=== PATIENT | female | born 1980 | race Caucasian/White ===

== ENCOUNTER 2022-07-06 12:55 | Outpatient (CLI) | payer OTHER, SELFPAY | END 2022-07-06 12:56 | disposition home or self-care (01) | PROVIDERS: Visit Provider Physician Assistant | DX: R07.81 Pleurodynia (principal); R10.9 Unspecified abdominal pain | CPT/HCPCS: 80076; 83690 ==

== ENCOUNTER 2024-08-30 09:12 | Outpatient (CLI) | payer OTHER, SELFPAY ==
--- NOTE | 2024-08-30 11:14 | P.ANES_ITS ---
Anesthesia Charges Start Date/Time Anesthesia Start Date: 08/30/24 Anesthesia Start Time: 10:29 Stop Date/Time Anesthesia Stop Date: 08/30/24 Anesthesia Stop Time: 11:33 Coding CPT Codes CPT Codes: YOSEF LWR INTST NDNE NOS - 51301 ([id number]) P1 - NORMAL HEALTHY PATIENT, QK - PIPE CHANGER 2-4 CNCRNT ANES PROC, QX - REFUGE MANAGER SVC W/ MED DIRECTION
--- NOTE | 2024-08-30 11:14 | W.ANESCHARGE ---
Anesthesia Charges Start Date/Time Anesthesia Start Date: 08/30/24 Anesthesia Start Time: 10:29 Stop Date/Time Anesthesia Stop Date: 08/30/24 Anesthesia Stop Time: 11:33 Coding CPT Codes CPT Codes: YOSEF LWR INTST NDIA NOS - 41338 ([id number]) P1 - NORMAL HEALTHY PATIENT, QK - HEDDLE MACHINE OPERATOR 2-4 CNCRNT ANES PROC, QX - ENVIRONMENTAL MARKETER SVC W/ MED DIRECTION
--- NOTE | 2024-08-30 11:35 | P.ANES_ITS ---
Anesthesia Charges Start Date/Time Anesthesia Start Date: 08/30/24 Anesthesia Start Time: 10:29 Stop Date/Time Anesthesia Stop Date: 08/30/24 Anesthesia Stop Time: 11:33 Coding CPT Codes CPT Codes: YOSEF LWR INTST NDME NOS - 73265 ([id number]) P1 - NORMAL HEALTHY PATIENT, QK - SENIOR MANAGER MERGERS & ACQUISITIONS 2-4 CNCRNT ANES PROC, QX - PUZZLE ASSEMBLER SVC W/ MED DIRECTION
--- NOTE | 2024-08-30 11:35 | W.ANESCHARGE ---
Anesthesia Charges Start Date/Time Anesthesia Start Date: 08/30/24 Anesthesia Start Time: 10:29 Stop Date/Time Anesthesia Stop Date: 08/30/24 Anesthesia Stop Time: 11:33 Coding CPT Codes CPT Codes: YOSEF LWR INTST NDNE NOS - 62736 ([id number]) P1 - NORMAL HEALTHY PATIENT, QK - DOMESTIC CLEANER 2-4 CNCRNT ANES PROC, QX - CRANIOLOGIST SVC W/ MED DIRECTION
== END 2024-08-30 09:13 | disposition home or self-care (01) ==
LOC: OP CLINIC 09:12
PROVIDERS: PCP Nurse Practitioner Family; Visit Provider Surgery
DX: Z12.11 Encounter for screening for malignant neoplasm of colon (principal); Z83.718 Family history of other colon polyps; K64.8 Other hemorrhoids; D12.3 Benign neoplasm of transverse colon; D12.2 Benign neoplasm of ascending colon; D12.8 Benign neoplasm of rectum
CPT/HCPCS: 00811; 00812; 45381; 45385; 88305; J2704

== ENCOUNTER 2024-09-01 09:00 | Outpatient (CLI) | payer OTHER, SELFPAY | END 2024-09-01 09:01 | disposition home or self-care (01) | PROVIDERS: PCP Nurse Practitioner Family; Visit Provider Nurse Practitioner Family | DX: Z01.818 Encounter for other preprocedural examination (principal) | CPT/HCPCS: 80053; 85025 ==

== ENCOUNTER 2024-09-12 06:17 | Day surgery (SDC) | payer OTHER, SELFPAY ==
[2024-09-12] VITALS (12 sets, daily range): BP systolic 89–126; BP diastolic 44–87; PULSE 51–79; RESP 16; TEMP 36.1–37.1; O2SAT 94–99; BMI 25.8
[2024-09-12] MEDS: LACTATED RINGERS 1000 ML 1,000 ML 100 ML IV (06:20)
[2024-09-12] MEDS: SODIUM CHLORIDE 0.9 % (FLUSH) 10 ML SYRINGE IVF (06:38)
--- NOTE | 2024-09-12 07:09 | W.PM.H&PU ---
History & Physical Update History & Physical Update H&P Reviewed and patient assessed: No changes noted
--- NOTE | 2024-09-12 07:10 | P.GSOP_ITS ---
Operative Note Date of procedure: 09/12/24 Pre-op diagnosis: 1. Symptomatic external hemorrhoids and hemorrhoidal skin tags. Post-op diagnosis: Same Type of Procedure: 1. Three quadrant external hemorrhoidectomy. Indications: 44-year-old female was seen in clinic for evaluation of symptomatic hemorrhoids. Patient stated that after having her fourth child, she had a thrombosed hemorrhoid. This has resolved spontaneously. She complained of tissue around her anus that was prominent but started to bother her in the last year. Patient complain of itching, burning, occasional bleeding after bowel movements. Her symptoms are bothering her more than once a day. She noted that it was disrupting her sleep. She was also having trouble cleaning herself after bowel movements. Patient has a lot of fiber in her diet. She drinks at least 80 oz of water daily. Her bowel movements are usually easy to pass and she rarely has straining. Patient had a colonoscopy with several polyps removed and 1 year follow-up was recommended. On clinical exam patient had circumferential redundant external hemorrhoidal skin tags with the largest skin tags right laterally anterior midline and left laterally. Digital rectal exam and anoscopy did not reveal significantly enlarged internal hemorrhoids but patient felt like she noticed more protruding tissue from her anus on the right side. Given patient's clinical history and her physical exam, 3 quadrant hemorrhoidectomy was recommended. The procedure was discussed in detail. The risks associated procedure including infection, bleeding, temporary incontinence, rare serious infection, and the need for additional procedures were all discussed with the patient, she agreed to proceed. Procedure Description: After discussing the risks and benefits of the procedure, the patient signed informed consent.? The operative site was marked and the patient was brought to the operating room and Intubated by Anesthesia. Patient was then placed prone on the operating table with all pressure points padded.?? The operative site was then prepped and draped in the usual sterile fashion.? A time-out was then performed. External examination, digital rectal examination, and anoscopic examination were all done and revealed significantly redundant External hemorrhoidal tissue with associated hemorrhoidal skin tags circumferentially. The largest burden of hemorrhoidal tissue was anterior midline, right lateral and right posterior late rally. Attention was initially directed to the largest area of involvement and then went to the progressively smaller areas and all were handled in the same fashion. I first started with excising the anterior midline wide external hemorrhoid and hemorrhoidal skin tag. An elliptical incision was made with a needle tip electrocautery from the anoderm up into the anal canal just above the dentate line. Careful dissection of the hemorrhoid complex was done in the plane between the internal anal sphincter and the submucosal vascular plexus up to just above the dentate line in each quadrant described above. Care was taken to have enough hemorrhoidal skin tag to extend to the right to be able to close the incision. Having established the proper plane, the hemorrhoidal tissue was then excised with the Ligasure device and sent to Pathology for analysis. Care was taken to preserve mucosa for a tension-free closure. The internal sphincter fibers were visualized at the base of the wound and were intact. The wound was closed in a running locked manner starting at the apex (proximal aspect of elliptical excision) with 3-0 chromic suture, coming out to the anoderm and then running back up in a simple fashion and tying down at the apex. I also placed three 3-0 Vicryl sutures throughout the incision to reapproximate the hemorrhoidal skin. Hemostasis was excellent. I then similarly excised right lateral and right posterior lateral enlarged external hemorrhoid and hemorrhoidal skin tag. the skin closure at the anal verge was split to make a Y like incision to achieve tension-free closure. 3-0 Vicryl was used to place 2 interrupted sutures to reapproximate the skin. Pressure was held for hemostasis. There was residual left lateral hemorrhoidal skin tag but that was left in place to avoid increased swelling and scarring associated with this procedure. A mixture of Marcaine and Exparel was then injected for bilateral pudendal nerve block and around the anus. Sterile gauze and ABD were placed over the anus and mesh panties were placed over the patient's incisions. Patient was then placed supine on a cart and extubated by anesthesia. The patient was then woken and transported to the recovery area in stable condition. ? The patient tolerated the procedure well. Findings: Redundant external hemorrhoid and hemorrhoidal skin tags. No significantly enlarged internal hemorrhoidal tissue. Surgeon: Shauna Wall MD Estimated blood loss (mL): 5 Additional Specimen Information: 1. Hemorrhoids. Condition: stable Disposition: PACU
[2024-09-12] MEDS: BUPIVACAINE 0.25 %/EPI 1:200K 30 ml INJECTION (08:04)
[2024-09-12] MEDS: BUPIVACAINE LIPOSOME 133 MG/10 ML INJ INFILTRATI (08:04)
--- NOTE | 2024-09-12 08:35 | SUR.OPER ---
permanent bracelet on right wrist, wrapped with gauze during procedure, surgeon is aware. Skin intact after procedure
[2024-09-12] MEDS: fentaNYL 100 MCG/2 ML inj 50 MCG IVP (08:50)
--- NOTE | 2024-09-12 09:43 | P.ANES_ITS ---
Anesthesia Charges Start Date/Time Anesthesia Start Date: 09/12/24 Anesthesia Start Time: 07:30 Stop Date/Time Anesthesia Stop Date: 09/12/24 Anesthesia Stop Time: 08:44 Coding CPT Codes CPT Codes: ANESTH ANORECTAL SURGERY - 02802 ([id number]) P1 - NORMAL HEALTHY PATIENT, QZ - MORTGAGE CLOSER SVC W/O INDUSTRIAL GAS FITTER HELPER BY
--- NOTE | 2024-09-12 09:43 | W.ANESCHARGE ---
Anesthesia Charges Start Date/Time Anesthesia Start Date: 09/12/24 Anesthesia Start Time: 07:30 Stop Date/Time Anesthesia Stop Date: 09/12/24 Anesthesia Stop Time: 08:44 Coding CPT Codes CPT Codes: ANESTH ANORECTAL SURGERY - 57421 ([id number]) P1 - NORMAL HEALTHY PATIENT, QZ - MERCHANDISE PLANNER SVC W/O AUTOCAD BY
[2024-09-12] MEDS: METOCLOPRAMIDE HCL 5 MG/ML INJ 10 MG IVP (09:50)
== END 2024-09-12 10:26 | disposition home or self-care (01) ==
PROVIDERS: Visit Provider Surgery
PROC: (CPT 46250; principal; 2024-09-12 07:30)
DX: K64.8 Other hemorrhoids (principal); K64.4 Residual hemorrhoidal skin tags
CPT/HCPCS: 46250; 00902; 88304; J0330; J0666; J1100; J1630; J1885; J2405; J2704; J2710; J2765; J3010; J7120

== ENCOUNTER 2024-09-22 08:24 | Outpatient (CLI) | payer OTHER, SELFPAY ==
--- OUTSIDE RECORDS SUMMARY | 2024-08-18 06:45 | XMS_ITS ---
Author Organization [facility] Address [address] [place] [address] Care Team Providers Care Sales Support Rep Name Role Phone None, No PCP Primary Care Provider Arlene Waters Unavailable [phone] Aga Go Unavailable [phone] Encounters Encounter Location Date Provider Diagnosis [address] [place] [id number] 08/18/2024 Aga Go Plan Of Treatment No Information Progress Notes * Maximo BENZOB: 8 (44 yo F)Acc No.[id number]:08/18/2024 Patient: Lon ZARATE Provider: Betty Go DPT :1980 A ge:44 Y S ex:Female Date:08/18/2024 Address:[address] [place], [place] [address] [id number] Pcp:No PCP None Subjective: * Chief Complaints: * * Medical History: Objective: * Vitals: Therapeutic Interventions: Assessment: Plan: * Treatment: * Images: Billing Information: * Visit Code: * Procedure Codes: * Electronic signature of Heidi Go DPT on 09/23/2024 at 12:30 AM CDT Sign off status: Pending * Provider: Betty Go DPT Date: 08/18/2024 Generated for Printi ng/[place]/eTransmitting on: 09/23/2024 12:30 AM CDT
--- OUTSIDE RECORDS SUMMARY | 2024-08-25 04:30 | XMS_ITS ---
Author Organization [facility] Address [address] [place] [address] Care Team Providers Care Flooring Helper Name Role Phone None, No PCP Primary Care Provider Arlene Waters Unavailable [phone] Aga Go Unavailable [phone] Encounters Encounter Location Date Provider Diagnosis [address] [place] [phone] 08/25/2024 Aga Go Plan Of Treatment No Information Progress Notes * Maximo BENZOB: 8 (44 yo F)Acc No.[id number]:08/25/2024 Patient: Lon ZARATE Provider: Betty Go DPT :1980 A ge:44 Y S ex:Female Date:08/25/2024 Address:[address] [place], [place] [id number] Pcp:No PCP None Subjective: * Chief Complaints: * * Medical History: Objective: * Vitals: Therapeutic Interventions: Assessment: Plan: * Treatment: * Images: Billing Information: * Visit Code: * Procedure Codes: * Electronic signature of Heidi Go DPT on 09/23/2024 at 12:29 AM CDT Sign off status: Pending * Provider: Betty Go DPT Date: 08/25/2024 Generated for Damoni ng/[place]/eTransmitting on: 0 09/23/2024 12:29 AM CDT
--- OUTSIDE RECORDS SUMMARY | 2024-09-01 06:00 | XMS_ITS ---
Author Organization [facility] Address [address] [place] [address] Care Team Providers Care Program Eligibility Specialist Name Role Phone None, No PCP Primary Care Provider Arlene Waters Unavailable [phone] Aga Go Unavailable [phone] Encounters Encounter Location Date Provider Diagnosis [address] [place] [id number] 09/01/2024 Aga Go Plan Of Treatment No Information Progress Notes * Maximo BENZOB: 8 (44 yo F)Acc No.[id number]:09/01/2024 Patient: Lon ZARATE Provider: Betty Go DPT :1980 A ge:44 Y S ex:Female Date:09/01/2024 Address:[address] [place], [place] [address] [id number] Pcp:No PCP None Subjective: * Chief Complaints: * * Medical History: Objective: * Vitals: Therapeutic Interventions: Assessment: Plan: * Treatment: * Images: Billing Information: * Visit Code: * Procedure Codes: * Electronic signature of Heidi Go DPT on 09/23/2024 at 12:29 AM CDT Sign off status: Pending * Provider: Betty Go DPT Date: 09/01/2024 Generated for Damoni ng/[place]/eTransmitting on: 09/23/2024 12:29 AM CDT
--- NOTE | 2024-09-22 10:00 | CRLHL7_ITS ---
For Patients: As a result of the Century Cures Act, medical imaging exams and procedure reports are released immediately into your electronic medical record. You may view this report before your referring provider. If you have questions, please contact your health care provider. INDICATION: Urinary retention status post hemorrhoidectomy TECHNIQUE: Axial images were obtained from the diaphragm to the pubic symphysis. Reformats were obtained in the coronal and sagittal plane. IV Contrast: 86 cc Isovue 370 Oral Contrast: Yes COMPARISON: Abdomen and pelvis CT 12/01/2018 FINDINGS: Lower chest: Unremarkable. Liver: Normal in contour with right lobe cyst measuring 9 millimeters. Other hypodense lesions measuring 5 millimeters or less which are too small for characterization. Gallbladder and bile ducts: Status post cholecystectomy. Spleen: Unremarkable. Normal in size without mass. Pancreas: Unremarkable. No mass or inflammation. Adrenal glands: Unremarkable. No nodules. Kidneys: Symmetric renal enhancement without hydronephrosis. Left renal cyst measuring 16 millimeters. Vasculature: Unremarkable. GI tract: Stomach is unremarkable. Small bowel is unremarkable. Appendix unremarkable. Some fluid and liquid stool within the colon. Pelvis: Status post hysterectomy. Mild bladder distention. Collapsing right ovarian cyst measuring 2.0 centimeters. Bones: Unremarkable for age. IMPRESSION: 1. No evidence of abscess. 2. Fluid noted within the colon which can be seen in a diarrheal illness. 3. Collapsing right ovarian cyst measuring 2.0 centimeters. Please note that all CT scans at this facility use dose modulation, iterative reconstruction, and/or weight-based dosing when appropriate to reduce radiation dose to as low as reasonably achievable. Dictated by Reza Callejas MD @ 09/22/2024 10:48:12 AM (Electronically Signed)
--- OUTSIDE RECORDS SUMMARY | 2024-09-23 00:35 | XMS_ITS | Patient Health Record ---
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 Name Role Phone None, No PCP Primary Care Provider Unavailteddy Alvarez Arlene Unavailable [phone] Rick Rendon Unavailable [phone] [facility], Mammography Unavailable Unav ailable DonavanAga mcguire Unavailable [phone] Tish Sandoval Unavailable [phone] Tish England Unavailable [phone] Allergies Allergen (clinical drug ingredient) Drug/Non Drug Allergy documented on EMR Reaction Allergy Type Onset Date Status nitrofurantoin, macrocrystals / nitrofurantoin, monohydrate Macrobid hives, swelling, itching, redness Drug Allergy Active Results Component Value Reference Range Notes Urinalysis, Routine (IH) Reviewed date:01/26/2024 05:00:57 PM Interpretation: Performing Lab: Notes/Report: Customer Sales Specialist: 01 Mini UA 101 ([id number]), [address] ESTRADIOL Reviewed date:02/08/2024 12:43:51 PM Interpretation: Performing Lab:JENNIFER [facility] Lfdn[address] [facility], [place] HospitalNyuzNN[address] Joaquín Mccain Notes/Report: ESTRADIOL 153 Reference Range Follicular Phase: 19-144 Mid-Cycle: 64-357 Luteal Phase: 56-214 Postmenopausal: < or = 31 Reference range established on post-pubertal patient population. No pre-pubertal reference range established using this assay. For any patients for whom low Estradiol levels are anticipated (e.g. males, pre-pubertal children and hypogonadal/post-menopausal females), the [facility] Estradiol, Ultrasensitive, LCMSMS assay is recommended (order code 24210). Please note: patients being treated with the drug fulvestrant (Faslodex(R)) have demonstrated significant interference in immunoassay methods for estradiol measurement. The cross reactivity could lead to falsely elevated estradiol test results leading to an inappropriate clinical assessment of estrogen status. [facility] order code [id number]-Ojghoktve, Ultrasensitive LC/MS/MS demonstrates negligible cross reactivity with fulvestrant. FSH Reviewed date:02/08/2024 12:43:51 PM Interpretation: Performing Lab:JENNIFER [facility] [address], [place] PwlsYT[address] Joaquín Miguel A Mccain Notes/Report: FSH 3.3 Reference Range Follicular Phase 2.5-10.2 Mid-cycle Peak 3.1-17.7 Luteal Phase 1.5- 9.1 Postmenopausal 23.0-116.3 TESTOSTERONE, TOTAL, LC/MS/M S Reviewed date:02/08/2024 12:43:51 PM Interpretation: Performing Lab:Sebastián [facility] [address], [address]ab[facility]ikwxgXL[address] Luz Marina Richard MD,PhD Notes/Report: TESTOSTERONE, TOTAL, MS 25 2-45 ng/dL https://education.ROLI/faq/TotalTestosteroneLCMSMS (This link is being provided for informational/educational purposes only.) (Note) This test was developed and its analytical performance characteristics have been determined by [employer]. It has not been cleared or approved by the FDA. This assay has been validated pursuant to the CLIA regulations and is used for clinical purposes. [facility] [address] [address],[address] [facility] [address] Luz Marina Richard MD, PhD For additional information, please refer to Urinalysis, Routine (IH) Reviewed date:03/28/2024 01:26:21 PM Interpretation: Performing Lab: Notes/Report: Customer Sales Specialist: 01 Luzma ([id number])Arash - Lab Urinalysis, Routine (IH) Reviewed date:03/10/2024 10:09:08 AM Interpretation: Performing Lab: Notes/Report: Customer Sales Specialist: 01 Luzma ([id number])Arash - Lab CULTURE, URINE, ROUTINE Reviewed date:03/12/2024 02:44:47 PM Interpretation:Normal Performing Lab:CB, [facility] [address], [place] WpijPV[address] Joaquín Mccain Notes/Report: 0 CULTURE, URINE, ROUTINE SEE NOTE CULTURE, URINE, ROUTINE Micro Number: [id number] Test Status: Final Specimen Source: Urine, catheter Specimen Quality: Adequate Result: No Growth Reason For Referral No Information Social History Tobacco Use: Social History Observation Description Date Details (start date - stop date) Never Smoker NA - NA Tobacco Control (Standard) Question Answer Notes Tobacco use: Nonsmoker Problems Problem Type SNOMED Code ICD Code Onset Dates Problem Status W/U Status Risk Notes Problem 358325406 Menopausal and female climacteric states (N95.1) Active confirmed Problem SI - Stress incontinence (80117994) Stress incontinence (N39.3) Active confirmed Problem 85927579 Dyspareunia, female (N94.10) Active confirmed Problem 36996361 SHAMA (stress urinary incontinence, female) (N39.3) Active confirmed Problem 157641423 OAB (overactive bladder) (N32.81) Active confirmed Problem 01090813 Mixed incontinence urge and stress (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) Active confirmed Problem 784887151 POP-Q stage 2 cystocele (N81.10) Active confirmed Problem 491658209 POP-Q stage 2 rectocele (N81.6) Active confirmed Problem 61113396 Hemorrhoids, external (K64.4) Active confirmed Vital Signs Blood pressure diastolic 68 mm Hg 04/07/2024 Height 68 in 04/07/2024 Blood pressure systolic 102 mm Hg 04/07/2024 Weight 190 lbs 04/07/2024 BMI 28.89 kg/m2 04/07/2024 Encounters Encounter Location Date Provider Diagnosis [facility] [address] [place] [address] 04/07/2024 Tish England Mixed incontinence urge and stress N39.46 ; Dyspareunia, female N94.10 ; Hx of endometriosis Z87.42 and PFD (pelvic floor dysfunction) M62.[address] [place], [place] [id number] 06/30/2024 Aga Go High-tone pelvic floor dysfunction M62.89 ; OAB (overactive bladder) N32.81 ; Urinary urgency R39.15 ; Dyspareunia, female N94.10 and SHAMA (stress urinary incontinence, female) N39.3 [facility] [address] [place] [address] [place] [address] 03/10/2024 Rick Julieta Urinary frequency R35.0 ; Urinary urgency R39.15 ; Stress incontinence N39.3 ; Feeling of incomplete bladder emptying R39.14 ; POP-Q stage 2 cystocele N81.10 and POP-Q stage [address] [id number] 06/09/2024 Aga Go High-tone pelvic floor dysfunction M62.89 ; OAB (overactive bladder) N32.81 ; Urinary urgency R39.15 ; Dyspareunia, female N94.10 and SHAMA (stress urinary incontinence, female) N39.3 [facility] [address] [place] [address] 02/02/2024 Arlene Alvarez Menopausal and femal e climacteric states N95.[address] [id number] 01/26/2024 Tish England Urinary urgency R39.15 ; Urinary frequency R35.0 ; Bladder pain R39.89 ; High-tone pelvic floor dysfunction M62.89 ; POP-Q stage 2 cystocele N81.10 ; POP-Q stage 2 rectocele N81.6 and Hemorrhoids, external K64.[address] [id number] 04/07/2024 Aga Go High-tone pelvic floor dysfunction M62.89 ; OAB (overactive bladder) N32.81 ; Urinary urgency R39.15 ; Dyspareunia, female N94.10 and SHAMA (stress urinary incontinence, female) N39.3 [address] [address] [place] [address] 02/11/2024 Tish England Menopausal and femal e climacteric states N95.1 [facility] [address] [place] [address] 03/28/2024 Rick [place] Urinary frequency R35.0 ; Urinary urgency R39.15 ; Bladder pain R39.89 and Feeling of incomplete bladder emptying R39.14 [facility] [address] [place] [address] 03/10/2024 [facility] [address] [place] [address] 01/26/2024 [facility] [address] [facility] [address] [place], [place] [id number] 08/03/2024 [facility] [address] [place] [address] 03/08/2024 Rick [facility] [address] [place] [address] 03/07/2024 Rick [facility] [address] [place] [address] 04/04/2024 Aga Go Assessments Encounter Date Diagnosis (ICD Code) Assessment Notes Treatment Notes Treatment Clinical Notes Section Notes 04/07/2024 OAB (overactive bladder) (ICD-10 - N32.81) Response to intervention: The patient tolerated treatment with no adverse effects. Objectively she presents with high tone pelvic floor leading to her symptoms of OAB, urinary urgency, stress incontinence and dyspareunia. She tolerated the manual therapy well today with improvements noted in both pain and tension. Spent time on education of bowel management today and answering her questions to satisfaction. Discussed completing the musculoskeletal exam next session and progression of her HEP. Pt would benefit from skilled physical thearpy to make improvements in symptoms and met her goals. 04/07/2024 High-tone pelvic floor dysfunction (ICD-10 - M62.89) Response to intervention: The patient tolerated treatment with no adverse effects. Objectively she presents with high tone pelvic floor leading to her symptoms of OAB, urinary urgency, stress incontinence and dyspareunia. She tolerated the manual therapy well today with improvements noted in both pain and tension. Spent time on education of bowel management today and answering her questions to satisfaction. Discussed completing the musculoskeletal exam next session and progression of her HEP. Pt would benefit from skilled physical thearpy to make improvements in symptoms and met her goals. 04/07/2024 Dyspareunia, female (ICD-10 - N94.10) Discuss PFPT and vaginal valium suppository if needed - she will notify provider. Review other options including dry needling pelvic floor, Marita, pelvic floor botox, etc if needed with PT 04/07/2024 Mixed incontinence urge and stress (ICD-10 - N39.46) Today we discussed the diagnosis of mixed stress (SHAMA) and urge urinary incontinence/overac tive bladder (UUI/OAB) symptoms. We discussed her symptoms, [...] Will reach out fo provider if desired. 03/28/2024 Urinary frequency (ICD-10 - R35.0) 03/28/2024 Urinary urgency (ICD-10 - R39.15) 03/10/2024 Urinary frequency (ICD-10 - R35.0) 03/10/2024 Urinary urgency (ICD-10 - R39.15) 02/11/2024 Menopausal and female climacteric states (ICD-10 - N95.1) 02/02/2024 Menopausal and female climacteric states (ICD-10 - N95.1) 01/26/2024 Urinary frequency (ICD-10 - R35.0) 01/26/2024 Urinary urgency (ICD-10 - R39.15) Urodynamics not done. Plan is urodynamic testing and follow up with me 1 week after. Reason for testing, alternative options, risks, and benefits explained. The patient was given a voiding collection hat along with a voiding diary. I taught the patient how to fill out the voiding diary and to complete for 2-3 24 hour periods. Explained to the patient that she should bring the completed voiding diary to her follow up appointment. 06/30/2024 High-tone pelvic floor dysfunction (ICD-10 - M62.89) Response to intervention: The patient tolerated treatment with no adverse effects. Reassessment her pelvic floor today and her tension is greatly improved since she started therapy however still remains mild with very mild soreness. She responded well the MT today with improvements noted. Encouraged to continue with her HEP and answered her questions to satisfaction today. Pt would benefit from skilled physical thearpy to make improvements in symptoms and met her goals. 06/09/2024 High-tone pelvic floor dysfunction (ICD-10 - M62.89) Response to intervention: The patient tolerated treatment with no adverse effects. Completed the musculoskeletal exam and progressed her exercises as noted above. Upon reassessment of her pelvic floor today she continues to present with increased tension and pain however responded well to the manual therapy with improvements noted in both pain and tension. Pt would benefit from skilled physical thearpy to make improvements in symptoms and met her goals. 06/09/2024 OAB (overactive bladder) (ICD-10 - N32.81) Response to intervention: The patient tolerated treatment with no adverse effects. Completed the musculoskeletal exam and progressed her exercises as noted above. Upon reassessment of her pelvic floor today she continues to present with increased tension and pain however responded well to the manual therapy with improvements noted in both pain and tension. Pt would benefit from skilled physical thearpy to make improvements in symptoms and met her goals. 03/10/2024 Stress incontinence (ICD-10 - N39.3) 06/30/2024 OAB (overactive bladder) (ICD-10 - N32.81) Response to intervention: The patient tolerated treatment with no adverse effects. Reassessment her pelvic floor today and her tension is greatly improved since she started therapy however still remains mild with very mild soreness. She responded well the MT today with improvements noted. Encouraged to continue with her HEP and answered her questions to satisfaction today. Pt would benefit from skilled physical thearpy to make improvements in symptoms and met her goals. 01/26/2024 Bladder pain (ICD-10 - R39.89) Discuss possibility of PBS/IC causing her symptoms. Will complete bladder testing 03/28/2024 Bladder pain (ICD-10 - R39.89) 04/07/2024 Urinary urgency (ICD-10 - R39.15) Response to intervention: The patient tolerated treatment with no adverse effects. Objectively she presents with high tone pelvic floor leading to her symptoms of OAB, urinary urgency, stress incontinence and dyspareunia. She tolerated the manual therapy well today with improvements noted in both pain and tension. Spent time on education of bowel management today and answering her questions to satisfaction. Discussed completing the musculoskeletal exam next session and progression of her HEP. Pt would benefit from skilled physical thearpy to make improvements in symptoms and met her goals. 04/07/2024 Hx of endometriosis (ICD-10 - Z87.42) Review her U/S today and that no ovarian abnormalities seen. However, she has intermittent pain in adnexa and desires a MD consult to discuss if a laparoscopy is indicated given her symptoms and time since last done 10+ years ago. 04/07/2024 PFD (pelvic floor dysfunction) (ICD-10 - M62.89) See above plan for PFPT evaluation and treatment. 03/28/2024 Feeling of incomplete bladder emptying (ICD-10 - R39.14) 04/07/2024 Dyspareunia, female (ICD-10 - N94.10) Response to intervention: The patient tolerated treatment with no adverse effects. Objectively she presents with high tone pelvic floor leading to her symptoms of OAB, urinary urgency, stress incontinence and dyspareunia. She tolerated the manual therapy well today with improvements noted in both pain and tension. Spent time on education of bowel management today and answering her questions to satisfaction. Discussed completing the musculoskeletal exam next session and progression of her HEP. Pt would benefit from skilled physical thearpy to make improvements in symptoms and met her goals. 03/10/2024 Feeling of incomplete bladder emptying (ICD-10 - R39.14) 06/09/2024 Urinary urgency (ICD-10 - R39.15) Response to intervention: The patient tolerated treatment with no adverse effects. Completed the musculoskeletal exam and progressed her exercises as noted above. Upon reassessment of her pelvic floor today she continues to present with increased tension and pain however responded well to the manual therapy with improvements noted in both pain and tension. Pt would benefit from skilled physical thearpy to make improvements in symptoms and met her goals. 01/26/2024 High-tone pelvic floor dysfunction (ICD-10 - M62.89) Patient with Pelvic Floor Dysfunction. The question is rather it is primary or secondary as a result of visceral-somatic convergence. Possible secondary causes are pudendal neuropathy, intersitital cystitis, endometriosis or other pelvic factors. Plan urodynamics and potassium sensitivity test. Laparoscopy was considered for will be deferred for now. 06/30/2024 Urinary urgency (ICD-10 - R39.15) Response to intervention: The patient tolerated treatment with no adverse effects. Reassessment her pelvic floor today and her tension is greatly improved since she started therapy however still remains mild with very mild soreness. She responded well the MT today with improvements noted. Encouraged to continue with her HEP and answered her questions to satisfaction today. Pt would benefit from skilled physical thearpy to make improvements in symptoms and met her goals. 06/30/2024 Dyspareunia, female (ICD-10 - N94.10) Response to intervention: The patient tolerated treatment with no adverse effects. Reassessment her pelvic floor today and her tension is greatly improved since she started therapy however still remains mild with very mild soreness. She responded well the MT today with improvements noted. Encouraged to continue with her HEP and answered her questions to satisfaction today. Pt would benefit from skilled physical thearpy to make improvements in symptoms and met her goals. 06/09/2024 Dyspareunia, female (ICD-10 - N94.10) Response to intervention: The patient tolerated treatment with no adverse effects. Completed the musculoskeletal exam and progressed her exercises as noted above. Upon reassessment of her pelvic floor today she continues to present with increased tension and pain however responded well to the manual therapy with improvements noted in both pain and tension. Pt would benefit from skilled physical thearpy to make improvements in symptoms and met her goals. 03/10/2024 POP-Q stage 2 cystocele (ICD-10 - N81.10) 01/26/2024 POP-Q stage 2 cystocele (ICD-10 - N81.10) Today we reviewed the findings on exam of stage 2 cystocele or anterior vaginal wall prolapse. The prolapse is bothersome for her. We reviewed the findings on exam with diagrams. We specifically discussed potential impact of cystocele on bladder function including urgency, feeling of incomplete emptying. We also reviewed correction of the cystocele may result in the development of occult stress incontinence due to unmasking of any urethral weakness without the kink in the urethra from the prolapse. In regards to treatment, we discussed management for cystocele to include the following options: -no treatment and monitoring -physical therapy including urostym -pessary -surgery - anterior repair with possible paravaginal repair and SSLT. This comes with a risk of recurrent prolapse and the importance of addressing other areas of prolapse speciflcally apical prolapse at the time of surgery to reduce risk of recurrence. After discussion, she desires to proceed with bladder testing then treatment planning in follow-up 04/07/2024 SHAMA (stress urinary incontinence, female) (ICD-10 - N39.3) Response to intervention: The patient tolerated treatment with no adverse effects. Objectively she presents with high tone pelvic floor leading to her symptoms of OAB, urinary urgency, stress incontinence and dyspareunia. She tolerated the manual therapy well today with improvements noted in both pain and tension. Spent time on education of bowel management today and answering her questions to satisfaction. Discussed completing the musculoskeletal exam next session and progression of her HEP. Pt would benefit from skilled physical thearpy to make improvements in symptoms and met her goals. 01/26/2024 POP-Q stage 2 rectocele (ICD-10 - N81.6) Today we reviewed the diagnosis of stage 2 Rectocele. We reviewed the findings on exam with images. We discussed the impact of rectocele on both bulge symptoms and bowel symptoms. We reviewed the impact of the rectocele on stool trapping resulting in incomplete emptying. While there are various reasons for constipation, stool trapping especially with her symptoms of feeling of incomplete stool emptying are consistent with her exam findings. Treatment options include physical therapy, pessary and surgery. 03/10/2024 POP-Q stage 2 rectocele (ICD-10 - N81.6) 06/09/2024 SHAMA (stress urinary incontinence, female) (ICD-10 - N39.3) Response to intervention: The patient tolerated treatment with no adverse effects. Completed the musculoskeletal exam and progressed her exercises as noted above. Upon reassessment of her pelvic floor today she continues to present with increased tension and pain however responded well to the manual therapy with improvements noted in both pain and tension. Pt would benefit from skilled physical thearpy to make improvements in symptoms and met her goals. 06/30/2024 SHAMA (stress urinary incontinence, female) (ICD-10 - N39.3) Response to intervention: The patient tolerated treatment with no adverse effects. Reassessment her pelvic floor today and her tension is greatly improved since she started therapy however still remains mild with very mild soreness. She responded well the MT today with improvements noted. Encouraged to continue with her HEP and answered her questions to satisfaction today. Pt would benefit from skilled physical thearpy to make improvements in symptoms and met her goals. 01/26/2024 Hemorrhoids, external (ICD-10 - K64.4) Return to care with colorectal specialist, prevoiusly discussed hemorrhoidectomy 03/24/2024 Other Follow up as scheduled in 2 weeks. Potassium Sensitivity Testing completed by Vinita Alvarez LPN under the direction of Dr Rick Rendon. 01/26/2024 Other Time spent on patient care including - review of previous records - preparation for visit - ordering medications, labs or imaging - documenting visit - discussion of care with another health care professional if indicated - direct face to face time with patient including obtaining relevant history, physical exam and discussion of plan of care Total time was 44 minutes spent including some or all of above listed required for care of patient talking about diagnosis, treatment and plan of care outside of usual preventive care with the patient as listed in the treatment portion of the note 02/02/2024 Other -HRT Labs drawn today. Reasoning for labs discussed in detail -HRT options reviewed in detail, including estradiol and testosterone, risks/benefits, common side effects, costs and dosing schedule. -Counseled on the differences between FDA approved bio-identical hormone replacement, and non-FDA approved compounded bioidentical hormone replacement. -Patient education and informed consent in HRT packet reviewed. -Counseled on associated increased risks for [place], CVA, VTE, and breast cancer with some forms of hormone replacement therapy. HRT could decrease associated lifetime risks, specifically with the use of bioidentical hormones including estradiol, progesterone, and/or testosterone preparations. Bioidentical hormonal therapies have not been shown to significantly increase risks for [place], CVA, VTE, and/or breast cancer, but do not guarantee prevention of developing these risks if used. group home associated risks of non-FDA approved bioidentical compounded hormones are not known. -Discussed potential side effects of pellet therapy including fluid retention, swelling, breast tenderness, nipple sensitivity, mood swings and irritability, acne, hair loss and/or hair growth. -Breast cancer screening policy reviewed and printed handout given. Mammogram needed prior to pellet insert. -Annual mammogram, clinical breast exam and GLASSBLOWER exams recommended -Plan for follow-up in next available visit to review lab results and proceed with treatment options if desired and indicated. Schedule pellet insert 1 week after mammogram is scheduled. 03/10/2024 Other We discussed the urodynamics procedure and explained that she should drink plenty of water today. Explained that she should follow up with any signs of worsening pain, fevers and/or malodorous urine. Increased urinary frequency and urgency could also be a sign of a urinary tract infection and she should notify us should this occur. Follow up in 4 weeks to discuss the results and to formulate a plan. Urodynamics completed by Vinita Alvarez LPN under the direction of Dr Rick Rendon. 03/28/2024 Other Follow up as scheduled in 1 week. Potassium Sensitivity Testing completed by Vinita Alvarez LPN under the direction of Dr Rick Rendon. 04/07/2024 Other Treatment Plan: Frequency: weekly Duration: 8-12 weeks Planned Interventions: therapeutic exercise, therapeutic activities, self care/home management, manual therapy, neuromuscular reeducation, urostym/e-stim Plan for next visit: Complete MS exam and progress home exercise as indicated with focus on PF and pelvic girdle stabilization exercises, manual therapy as indicated. She would do well with urostym therapy Response to intervention: The patient tolerated treatment with no adverse effects. Objectively she presents with high tone pelvic floor leading to her symptoms of OAB, urinary urgency, stress incontinence and dyspareunia. She tolerated the manual therapy well today with improvements noted in both pain and tension. Spent time on education of bowel management today and answering her questions to satisfaction. Discussed completing the musculoskeletal exam next session and progression of her HEP. Pt would benefit from skilled physical thearpy to make improvements in symptoms and met her goals. 06/09/2024 Other Treatment Plan: Frequency: weekly Duration: 8-12 weeks Planned Interventions: therapeutic exercise, therapeutic activities, self care/home management, manual therapy, neuromuscular reeducation, urostym/e-stim Plan for next visit: Progress home exercise as indicated with focus on PF and pelvic girdle stabilization exercises, manual therapy as indicated. She would do well with urostym therapy Response to intervention: The patient tolerated treatment with no adverse effects. Completed the musculoskeletal exam and progressed her exercises as noted above. Upon reassessment of her pelvic floor today she continues to present with increased tension and pain however responded well to the manual therapy with improvements noted in both pain and tension. Pt would benefit from skilled physical thearpy to make improvements in symptoms and met her goals. 06/30/2024 Other Treatment Plan: Frequency: weekly Duration: 8-12 weeks Planned Interventions: therapeutic exercise, therapeutic activities, self care/home management, manual therapy, neuromuscular reeducation, urostym/e-stim Plan for next visit: Progress home exercise as indicated with focus on PF and pelvic girdle stabilization exercises, manual therapy as indicated. She would do well with urostym therapy Response to intervention: The patient tolerated treatment with no adverse effects. Reassessment her pelvic floor today and her tension is greatly improved since she started therapy however still remains mild with very mild soreness. She responded well the MT today with improvements noted. Encouraged to continue with her HEP and answered her questions to satisfaction today. Pt would benefit from skilled physical thearpy to make improvements in symptoms and met her goals. Plan Of Treatment No Information Insurance Providers Payer Name Payer Address Payer Phone Subscriber Number Group Number Insured Name Patient Relationship to Insured Coverage Start Date Coverage End Date [facility] [address] MARTHA Villalobos [id number] Self - patient is the insured Medical (General) History Medical History History ICD Code chicken pox lymes disease gall baldder disease liver disease/hepatitis Hypothyroid kidney Infection Bladder infection endometriosis ovarian cyst arthiritis hemorroids Surgical History Surgery Date(Month/Year) Gall Bladder Surgery Hysterectomy fusions ovarian cysts Hospitalization History Reason Date(Month/Year) Gall Bladder Post Surgeries
--- OUTSIDE RECORDS SUMMARY | 2024-09-23 00:35 | XMS_ITS | Clinical Summary ---
Author Organization [employer] Address [address] [place] [address] Care Team Providers Care Hardboard Supervisor Name Role Phone Ronnie Vizcarra MD Primary Care Provider [phone] Source Comments You are receiving this document as you are listed as the primary care provider,follow-up provider, or the patient has been referred to you for consultation.This is in compliance with the Medicare andMedicaid EHR Incentive Program,which states Providers who transition their patient to another setting of careor provider of care or refers their patient to another provider of care shouldprovide summary care record for each transition of care or referral. [employer] Allergies Active Allergy Reactions Criticality Noted Date Comments Nitrofurantoin Hives High 01/07/2016 Swelling and itching Medications * This document contains information received from the source organization and may not represent a complete record from that organization. amphetamine-dext roamphetamine (ADDERALLXR) 30 MG 24 hour release capsule Take by mouth daily. 0 12/14/2015 Active amphetamine-dext roamphetamine (ADDERALL) 10 MG tablet Take 10 mg by mouth daily at noon. 0 12/14/2015 Active levothyroxine (SYNTHROID) 100 MCG tablet Take 100 mcg by mouth daily. 3 11/02/2015 Active sertraline (ZOLOFT) 50 MG tablet TAKE 1 TABLET BY MOUTH DAILY. TAKE W/ 100MG TAB FOR TOTAL DAILY DOSE OF 150MG. 3 11/02/2015 Active sertraline (ZOLOFT) 100 MG tablet 01/05/2016 Active Active Problems Problem Noted Date Diagnosed Date Primary osteoarthritis of both hands 01/07/2016 Pain in both hands 01/07/2016 Fibromyalgia 01/07/2016 Chronic fatigue 01/07/2016 Depression 01/07/2016 ADD (attention deficit disorder) 01/07/2016 Immunizations Immunization Administration Dates Next Due HepB Ped/Adol (0-18 yrs) 07/04/1997,02/03/1997,0 01/03/1997 Td 01/03/1997 Varicella 05/22/1999(Deferred: Immune by Florence garcia) Social History Tobacco Use Types Packs/Day Years Used Date Smoking Tobacco: Every Day Cigarettes Smokeless Tobacco: Never Comments Unknown Sex and Gender Information Value Date Recorded Sex Assigned at Not on file Legal Sex Female 6:55 AM CDT Gender Identity Not on file Sexual Orientation Not on file Last Filed Vital Signs Vital Sign Reading Time Taken Comments Blood Pressure 118/65 01/07/2016 10:32 AM CDT Pulse 78 01/07/2016 10:32 AM CDT Temperature - - Respiratory Rate - - Oxygen Saturation - - Inhaled Oxygen Concentration - - Weight 72.1 kg (159 lb) 01/07/2016 10:32 AM CDT Height - - Body Mass Index - - Plan of Treatment Health Maintenance Due Date Last Done Comments Colon Cancer Screening Plan Due 1978 Hep C Screening (Preventive Services) 1978 Mammogram 1978 HIV Screening (Preventive Services) 1994 DTaP/Tdap/Td Vaccine (2 - Tdap) 01/04/1997 01/03/1997 Cervical Cancer Screening Due 05/21/1999, 05/20/1999 Adult Preventive Visit 05/20/2000 05/20/1999 Cholesterol 2023 COVID-19 Vaccine ( - 2023-2 5 season) 2023 Influenza Vaccine (Season Ended) 2024 Zoster/Shingles Vaccine (1 o f 2) 01/25/2028 HepB Vaccine Completed 07/04/1997, 02/03/1997, 01/03/1997 HepA Vaccine Aged Out No longer eligi ble based on patient's age to complete this topic Hib Vaccine Aged Out No longer eligi ble based on patient's age to complete this topic IPV (Polio) Vaccine Aged Out No longe r eligible based on patient's age to complete this topic MCV4 Vaccine Aged Out No longer eligi ble based on patient's age to complete this topic Meningococcal B Vaccine Aged Out No l onger eligible based on patient's age to complete this topic Pneumococcal Vaccine Aged Out No long er eligible based on patient's age to complete this topic Procedures Procedure Name Priority Date/Time Associated Diagnosis Comments PAP TEST, ROUTINE Routine 05/20/1999 12: 10 PM PHOTONICS TECHNICIAN from Last 3 Months or Most Recently Relevant to Health Maintenance Results * PAP SMEAR, ROUTINE (05/20/1999 12:10 PM PHOTONICS TECHNICIAN) Pap Smear, Routine See Separate Report Performed at [facility] 05/20/1999 12:1 0 PM PHOTONICS TECHNICIAN 05/20/1999 12:11 PM PHOTONICS TECHNICIAN us Chio Cantu NEWSPAPER PHOTOJOURNALIST, FIELD CROP TECHNICAL OFFICER LAB_1 Fin al Result Performing Organization Address City/State/[facility] Co de Phone Number [facility] [address] [phone] from Last 3 Months or Most Recently Relevant to Health Maintenance Insurance SELF INSURED Care Teams Hardboard Supervisor Relationship Specialty Start Date End Date Ronnie Vizcarra MD [address] [place] [address] PCP - General 03/02/13
--- OUTSIDE RECORDS SUMMARY | 2024-09-23 00:35 | XMS_ITS | Clinical Summary ---
Author Organization [employer] [facility] Address [address] [place] [address] Care Team Providers Care Ballet Dancer Name Role Phone Unknown, Doctor Primary Care Provider Sonny Justin MD Unavailable Unavailab le Allergies Active Allergy Reactions Criticality Noted Date Comments Nitrofurantoin Hives 01/19/2006 Medications IBUPROFEN 200 MG TAB take 3 tablet s(200 mg) by oral route every 6 hours as needed with food 0 Active CIPRO 250 MG TAB take 1 tablet (250 mg) by oral route every 12 hours 6 0 7 Active AMBIEN 5 MG TAB take 1 tablet (5 mg) by oral route once daily at bedtime as needed 10 0 7 Active APRI 0.15 MG-30 MCG TABIndications:Othe r general counseling and advice for contraceptive management take 1 tablet by oral route once daily 28 0 8 Active LEVOTHYROXINE 100 MCG TABIndications:Unsp ecified hypothyroidism take 1 tablet (100mcg) by oral route once daily 14 0 8 Active Active Problems Problem Noted Date Diagnosed Date Pure hypercholesterolemia 10/19/2006 Irritable bowel syndrome 01/19/2006 Unspecified hypothyroidism 01/19/2006 Encounters Date Type Department Care Team Description 09/12/2024 Lab Requisition [facility] [phone] Shauna Wall MD 08/31/2024 Lab Requisition [facility] [phone] Shauna Wall MD from Last 3 Months Immunizations Immunization Administration Dates Next Due Hepatitis B (Adult) 12/05/1997,07/05/1997,1997 MMR 11/16/1995 Td (Age >=7 Years) 07/12/1996 Tdap 10/19/2006 Tuberculin (PPD) 05/17/2001 Family History Medical History Relation Name Comments Good Health Father Other Maternal Grandfather bladder cancer Cancer-colon Maternal Grandmother Heart Disease Maternal Uncle Good Health Mother Diabetes Paternal Grandfather Hypertension Paternal Grandmother Relation Name Status Comments Father Alive Maternal Grandfather Maternal Grandmother Maternal Uncle Mother Alive Paternal Grandfather Paternal Grandmother Social History Tobacco Use Types Packs/Day Years Used Date Smoking Tobacco: Former Comments:quit in 2005 Alcohol Use Standard Drinks/Week Comments Yes 0 (1 standard drink = 0.6 oz pur e alcohol) rare Interpersonal Safety Answer Date Record ed Are you being hit, kicked, p ushed or yelled at (see row info)? 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 Not on file Not on file Obstetrics History Last Filed Vital Signs Vital Sign Reading Time Taken Comments Blood Pressure 109/67 06/07/2024 7:30 PM JACKAROO Pulse 51 06/07/2024 7:30 PM JACKAROO Temperature 36.8 C (98.3 F) 06/07/2024 5:20 PM JACKAROO Respiratory Rate 15 06/07/2024 7:30 PM JACKAROO Oxygen Saturation 99% 06/07/2024 7:30 PM JACKAROO Inhaled Oxygen Concentration - - Weight 83.9 kg (185 lb) 06/07/2024 5:20 PM JACKAROO Height 175.3 cm (5' 9) 06/07/2024 5:20 PM JACKAROO Body Mass Index 27.32 06/07/2024 5:20 PM JACKAROO Plan of Treatment Health Maintenance Due Date Last Done Comments Depression screening for age 12+ 1990 HIV for age 15-65 1993 BMI (ht and wt on same day) for age 18+ 01/25/1996 Hepatitis C screening for age 18-79 01/25/1996 Tetanus booster 10/19/2016 10/19/2006, 07/12/1996 Pap test for age 21-65 02/19/2019 6, 02/20/2016, 03/24/2008, Additional history exists Colonoscopy through age 75 2023 Lipids for age 45-75 2023 10/19/2006, 07/12/2003, 07/12/2003, Additional history exists Mammogram for age 45-75 2023 COVID-19 vaccine series ( season) 2023 Influenza Vaccine (Season Ended) 2024 Hepatitis B series for 19+ Completed 12/05, 07/05/1997, 06/04/1997 Tdap Completed 10/19/2006 Pneumococcal series for age 6-49 Aged Out No longer eligible based on patient's age to complete this topic Procedures Procedure Name Priority Date/Time Associated Diagnosis Comments LAB TRACKING EVENT Routine 09/12/2024 12 :00 PM CDT PATH TISSUE EXAM Routine 09/12/2024 8:03 AM CDT LAB TRACKING EVENT Routine 08/30/2024 10 :41 AM CDT PATH TISSUE EXAM Routine 08/30/2024 10:4 1 AM CDT DIRECTOR ORGANIZATIONAL THIN PREP PAP SCREEN IMAGED Routine 02/20/2016 10:00 AM JACKAROO LIPID PANEL Routine 10/19/2006 10:32 AM CDT Hypercholesterolemi a from Last 3 Months or Most Recently Relevant to Health Maintenance Results * LAB TRACKING EVENT (09/12/2024 12:00 PM CDT) Only the most recent of2 resultswithin the time period is included. Other (Other) Client Collect / Unknown 09/12/2024 12:00 PM CDT 09/12/2024 3:21 PM CDT us Shauna Wall MD LAB BILL ONLY Final Resu lt [facility] [address] [place] [address], [place] * PATH TISSUE EXAM (09/12/2024 8:03 AM CDT) Only the most recent of2 resultswithin the time period is included. Case Report Pathology Report Case: [id number] Authorizing Provider: Shauna Wall MD Collected: 09/12/2024 0803 Ordering Location: [facility] Received: 09/12/2024 1651 Pathologist: Abner Herring MD Specimen: Hemorrhoids 09/14/2024 2:50 PM CDT [facility] Final Diagnosis A) ANUS, HEMORRHOIDS, HEMORRHOIDECTOMY: 1. Benign anal hemorrhoidal tissue 2. Negative for viral change, dysplasia and malignancy 09/14/2024 2:50 PM CDT [facility] at 1450 CDT Clinical Information Hemorrhoids. 09/14/2024 2:50 PM CDT [facility] Gross Description A) Received in formalin, labeled with the patient's name and hemorrhoids, is a 4.0 x 3.0 x 1.2 cm aggregate of two portions of anal skin and or mucosa. The overlying mucosa is unremarkable. The cut surfaces are adam-pink with dilated and congested blood vessels. No masses or lesions are identified. Welder Plasma Arc sections of each fragment are submitted in one cassette. AL 09/13/2024 09/14/2024 2:50 PM CDT [facility] Microscopic Description The final diagnosis is based on microscopic examination of appropriate sections of all specimens. 09/14/2024 2:50 PM CDT [facility] Additional Information Interpreted at [facility] - [address], [place] [address] 09/14/2024 2:50 PM CDT [facility] Other HEMORRHOID TISSUE SPECIMEN / Unknown 09/12/2024 8:03 AM CDT 09/12/2024 4:51 PM CDT us Shauna Wall MD PATHOLOGY/CYTOLOGY Final R esult [facility] [address] [place] [address], * DIRECTOR ORGANIZATIONAL THIN PREP PAP SCREEN IMAGED (02/20/2016 10:00 AM JACKAROO) Case Report Gynecologic Cytology Report Case: [id number] Authorizing Provider: Lali Foote MD Collected: 02/20/2016 1000 First Screen: Debbie Reza Received: 02/22/2016 0838 Rescreen: Freddy Mosher Specimen: DIRECTOR ORGANIZATIONAL ThinPrep Vial Screening, Cervical/Vaginal 03/03/2016 1:37 PM JACKAROO [facility] INTERPRETATION/ RESULT NEGATIVE FOR INTRAEPITHELIAL LESION OR MALIGNANCY (NIL) (none) 03/03/2016 1:37 PM JACKAROO [facility] at 1337 JACKAROO SPECIMEN ADEQUACY Satisfactory for evaluation Endocervical component present 03/03/2016 1:37 PM JACKAROO [facility] HPV REQUEST HPV and PAP 03/03/2016 1:37 PM JACKAROO [facility] Date of LMP 02/09/2016 03/03/2016 1:37 PM JACKAROO [facility] Last Pap Date 11/29/2012 03/03/2016 1:37 PM JACKAROO [facility] Last Pap Result 6 1:37 PM [facility] Comment:WNL, -HPV Automated Review Successful 03/03/2016 1:37 PM JACKAROO [facility] Comment:Specimen processed s uccessfully by automated coin machine collector supervisor device, [employer]inPrep Imaging System, [employer] ANCILLARY TESTING DIRECTOR ORGANIZATIONAL HPV Ordered, Please see separate report 03/03/2016 1:37 PM JACKAROO [facility] Note The pap test is a screening technique, not a diagnostic procedure. It is used primarily to screen for squamous cancers and precursor lesions. Published studies have shown that it is subject to both false negative and false positive results. The pap test should not be used as the sole means to diagnose or exclude pre-malignant and malignant lesions. 03/03/2016 1:37 PM JACKAROO [facility] Other (Cervical/Vagina l) 02/20/2016 10:00 AM JACKAROO 02/22/2016 8:38 AM JACKAROO us Lail Foote MD PATHOLOGY/CYTOLOGY Final R esult [facility] [address] [place] [address], * (ABNORMAL) LIPID PANEL (10/19/2006 10:32 AM CDT) CHOLESTEROL,TOTAL 225(H) 110 - 199 mg/dL [facility] TRIGLYCERIDES 128 40 - 149 mg/dL [facility] HDL CHOLESTEROL 66 >40 mg/dL [facility] CHOL/HDL RATIO 3.41 <4.51 [facility] LDL CHOLESTEROL 133(H) <131 mg/dL [facility] PATIENT STATUS Fasting [facility] Blood specimen (specimen) BLOOD SPECIMEN / Unknown 10/19/2006 10:32 AM CDT 10/19/2006 10:26 AM CDT us Shireen KEANE CHEMISTRY Final R esult [facility] [place]NAL ZIP [address] [place] [id number] from Last 3 Months or Most Recently Relevant to Health Maintenance Insurance [id number] [place] [id number] [place] [id number] Care Teams Ballet Dancer Relationship Specialty Start Date End Date Unknown, Doctor . PCP - General 04/19/08 Sonny Stoner MD 12/10/10
== END 2024-09-22 08:25 | disposition home or self-care (01) ==
LOC: CT 08:25
PROVIDERS: PCP Nurse Practitioner Family; Visit Provider Surgery
DX: R33.9 Retention of urine, unspecified (principal); Z87.19 Personal history of other diseases of the digestive system; Z98.890 Other specified postprocedural states
CPT/HCPCS: 74177; Q9967

== ENCOUNTER 2025-01-30 10:36 | Emergency (ER) | payer OTHER, SELFPAY ==
--- OUTSIDE RECORDS SUMMARY | 2024-06-23 06:00 | XMS_ITS ---
Author Organization [facility] Address [address] [place] [address] Care Team Providers Care Utilities Service Investigator Name Role Phone None, No PCP Primary Care Provider Arlene Waters Unavailable [phone] Aga Go Unavailable [phone] Encounters Encounter Location Date Provider Diagnosis [address] [place] [phone] 06/23/2024 Aga Go Plan Of Treatment No Information Progress Notes * Marcos FISHERPiaOB: 8 (45 yo F)Acc No.[id number]:06/23/2024 Patient: Lon ZARATE Provider: Betty Go DPT :1980 A ge:44 Y S ex:Female Date:06/23/2024 Address:[address] [place], [place] [address], [id number] Pcp:No PCP None Subjective: * Chief Complaints: * * Medical History: Objective: * Vitals: Therapeutic Interventions: Assessment: Plan: * Treatment: * Images: Billing Information: * Visit Code: * Procedure Codes: * Electronic signature of Heidi Go DPT on 01/30/2025 at 10:39 AM CDT Sign off status: Pending * Provider: Betty Go DPT Date: 0 06/23/2024 Generated for Printi ng/Faxing/eTransmitting on: 1 10:39 AM CDT
--- OUTSIDE RECORDS SUMMARY | 2024-07-07 05:30 | XMS_ITS ---
Author Organization [facility] [facility] Address [address] [facility] [place] [address] Care Team Providers Care Sales Engineer [employer] Name Role Phone None, No PCP Primary Care Provider Arlene Waters Unavailable [phone] Tish England Unavailable [phone] Encounters Encounter Location Date Provider Diagnosis [place] [address] [place] [address] 07/07/2024 Tish England Plan Of Treatment No Information Progress Notes * Maximo FISHEROB: 8 (45 yo F)Acc No.[id number]:07/07/2024 Patient: Lon ZARATE Provider: DIYA Ray :1980 A ge:44 Y S ex:Female Date:07/07/2024 Address:[address] [place], [place] [address], [id number] Pcp:No PCP None Subjective: * Chief Complaints: * * Medical History: Objective: * Vitals: Assessment: Plan: * Treatment: * Images: Billing Information: * Visit Code: * Procedure Codes: * Electronic signature of DIYA Garcia on 01/30/2025 at 10:39 AM CDT Sign off status: Pending * Provider: DIYA Ray Date: 0 07/07/2024 Generated for Printi ng/Faxing/eTransmitting on: 1 10:39 AM CDT
--- OUTSIDE RECORDS SUMMARY | 2024-07-21 08:30 | XMS_ITS ---
Author Organization [employer] [facility] Address [address] [place] [address] Care Team Providers Care Milieu Technician Name Role Phone None, No PCP Primary Care Provider Arlene Waters Unavailable [phone] Aga Go Unavailable [phone] Encounters Encounter Location Date Provider Diagnosis [address] [place] [phone] 07/21/2024 Aga Go Plan Of Treatment No Information Progress Notes * MACIANASTASIYA MarcosPiaOB: 8 (45 yo F)Acc No.[id number]:07/21/2024 Patient: Lon ZARATE Provider: Betty Go DPT :1980 A ge:44 Y S ex:Female Date:07/21/2024 Address:[address] [place], [place] [address], [id number] Pcp:No PCP None Subjective: * Chief Complaints: * * Medical History: Objective: * Vitals: Therapeutic Interventions: Assessment: Plan: * Treatment: * Images: Billing Information: * Visit Code: * Procedure Codes: * Electronic signature of Heidi Go DPT on 01/30/2025 at 10:40 AM CDT Sign off status: Pending * Provider: Betty Go DPT Date: 0 07/21/2024 Generated for Printi ng/Faxing/eTransmitting on: 1 10:40 AM CDT
--- OUTSIDE RECORDS SUMMARY | 2024-08-04 09:30 | XMS_ITS ---
Author Organization [employer] [facility] [place] [address] [facility] [place] [address] Care Team Providers Care Track Announcer Name Role Phone None, No PCP Primary Care Provider Arlene Waters Unavailable [phone] Tish England Unavailable [phone] Allergies Allergen (clinical drug ingredient) Drug/Non Drug Allergy documented on EMR Reaction Allergy Type Onset Date Status nitrofurantoin, macrocrystals / nitrofurantoin, monohydrate Macrobid hives, swelling, itching, redness Drug Allergy Active REASON FOR VISIT Bladder f/u, pt Social History Tobacco Use: Social History Observation Description Date Details (start date - stop date) Never Smoker NA - NA Tobacco Control (Standard) Question Answer Notes Tobacco use: Nonsmoker Encounters Encounter Location Date Provider Diagnosis [facility] [place] [address] [place] [address] 08/04/2024 Tish England Mixed incontinence urge and stress N39.46 ; Dyspareunia, female N94.10 ; Hx of endometriosis Z87.42 and PFD (pelvic floor dysfunction) M62.89 Assessments Encounter Date Diagnosis (ICD Code) Assessment Notes Treatment Notes Treatment Clinical Notes Section Notes 08/04/2024 Mixed incontinence urge and stress (ICD-10 - N39.46) Today we discussed the diagnosis of mixed stress (SHAMA) and urge urinary incontinence/overact mukund bladder (UUI/OAB) symptoms. We discussed her symptoms, physical exam findings, and testing. We discussed the etiology and risk factors for the development of both SHAMA and UUI/OAB. She understands that the causes and treatments are distinct and require different approaches to treatment. Given a mixed urinary incontinence picture, we discussed 2 potential algorithms for treatment: 1. Address SAHMA symptoms first. 2. Address UUI/OAB symptoms first. After treatment is completed, re-evaluate and address any residual/persistent symptoms. Her most bothersome symptom is the URGE. She would like to proceed with treating this first. FOR SHAMA: -No treatment, she may return if she descides to pursue therapies -Fluid management -Urostym weekly x 6 weeks and follow-up with provider 1 week later -Incontinence Pessary -Urethral collagen injections -Pubovaginal sling -Non traditional rejuvenation therapies including Thermiva, PRP, Femilift as options FOR UUI/OAB: We discussed treatment options including first-line, second-line, third-line, and non-traditional therapies. We discussed the risks and benefits of each treatment option. First-line Therapies: - Lifestyle modifications (bladder training, fluid management, and dietary modifications). - Pelvic floor therapy (Urostym or PT) for bladder retraining to increase the time between voids and help decrease her urgency symptoms. Second-line Therapies: - Medications We discussed medications can help with her UUI/OAB. We discussed the two main types of medicaitons are anticholingergics which have the side effects of dry mouth, dry eyes and constipation. Additonally some women may notice a change in memory with use of anticholingergic medications. Alternative medications includes the beta-3 agonists Myrbetriq or Gemtesa. Third-line Therapies: - peripheral tibial nerve stimulation, intradetrusor botox injections and sacral nerve stimulation. If she would like to discuss these options further, referral to Dr. Rendon can be placed. I recommend pelvic floor rehabilitation with behavior modifications. She has habit of voiding 5+ times at night while trying to fall asleep. If this is not effective then medication. If two medications fail, then Third tier options. She voiced understanding. After our discussion she elected to participate in PT as scheduled. She declines OAB medication trial with Oxybutynin ER 5 mg daily dose due to risk of worsening constipation. Will reach out fo provider if desired. 08/04/2024 Dyspareunia, female (ICD-10 - N94.10) Discuss PFPT and vaginal valium suppository if needed - she will notify provider. Review other options including dry needling pelvic floor, Marita, pelvic floor botox, etc if needed with PT 08/04/2024 Hx of endometriosis (ICD-10 - Z87.42) Review her U/S today and that no ovarian abnormalities seen. However, she has intermittent pain in adnexa and desires a MD consult to discuss if a laparoscopy is indicated given her symptoms and time since last done 10+ years ago. 08/04/2024 PFD (pelvic floor dysfunction) (ICD-10 - M62.89) See above plan for PFPT evaluation and treatment. Plan Of Treatment Treatment Notes Assessment Notes Mixed incontinence urge and stress Today we discussed the diagnosis of mixed stress (SHAMA) and urge urinary incontinence/overactive bladder (UUI/OAB) symptoms. We discussed her symptoms, physical exam findings, and testing. We discussed the etiology and risk factors for the development of both SHAMA and UUI/OAB. She understands that the causes and treatments are distinct and require different approaches to treatment. Given a mixed urinary incontinence picture, we discussed 2 potential algorithms for treatment: 1. Address SHAMA symptoms first. 2. Address UUI/OAB symptoms first. After treatment is completed, re-evaluate and address any residual/persistent symptoms. Her most bothersome symptom is the URGE. She would like to proceed with treating this first. FOR SHAMA: -No treatment, she may return if she descides to pursue therapies -Fluid management -Urostym weekly x 6 weeks and follow-up with provider 1 week later -Incontinence Pessary -Urethral collagen injections -Pubovaginal sling -Non traditional rejuvenation therapies including Thermiva, PRP, Femilift as options FOR UUI/OAB: We discussed treatment options including first-line, second-line, third-line, and non-traditional therapies. We discussed the risks and benefits of each treatment option. First-line Therapies: - Lifestyle modifications (bladder training, fluid management, and dietary modifications). - Pelvic floor therapy (Urostym or PT) for bladder retraining to increase the time between voids and help decrease her urgency symptoms. Second-line Therapies: - Medications We discussed medications can help with her UUI/OAB. We discussed the two main types of medicaitons are anticholingergics which have the side effects of dry mouth, dry eyes and constipation. Additonally some women may notice a change in memory with use of anticholingergic medications. Alternative medications includes the beta-3 agonists Myrbetriq or Gemtesa. Third-line Therapies: - peripheral tibial nerve stimulation, intradetrusor botox injections and sacral nerve stimulation. If she would like to discuss these options further, referral to Dr. Rendon can be placed. I recommend pelvic floor rehabilitation with behavior modifications. She has habit of voiding 5+ times at night while trying to fall asleep. If this is not effective then medication. If two medications fail, then Third tier options. She voiced understanding. After our discussion she elected to participate in PT as scheduled. She declines OAB medication trial with Oxybutynin ER 5 mg daily dose due to risk of worsening constipation. Will reach out fo provider if desired. Dyspareunia, female Discuss PFPT and vaginal valium suppository if needed - she will notify provider. Review other options including dry needling pelvic floor, Marita, pelvic floor botox, etc if needed with PT Hx of endometriosis Review her U/S today and that no ovarian abnormalities seen. However, she has intermittent pain in adnexa and desires a MD consult to discuss if a laparoscopy is indicated given her symptoms and time since last done 10+ years ago. PFD (pelvic floor dysfunction) See above plan for PFPT evaluation and treatment. Next Appt Details Follow Up: PT as scheduled, bladder f/u 3 months with Tish Khan MD consult for endometriosis, Reason: Progress Notes * Maximo BENZOB: 8 (45 yo F)Acc No.[id number]:08/04/2024 Patient: Lon ZARATE Provider: DIYA Ray :1980 A ge:44 Y S ex:Female Date:08/04/2024 [address] [phone] Pcp:No PCP None Subjective: * Chief Complaints: * 1 . Bladder f/u. 2. Pt. * HPI: * General: Lon is a 44 year old perimenopausal female who presents as a bladder follow-up for urinary urgency/frequency, incomplete emptying,aching in lower abdomen from self referral source. She reports this has been occuring x 6 months duration of time. Past medical history is positive for gallbladder disease, chicken pox, liver disease, thyroid problem, kidney and bladder infections, endometriosis, ovarian cysts, arthritis and surgical history hysterectomy d/t endometriosis. Pain with intrcourse has returned the last couple years.Diagnosed in young 20s with endometriosis, had a couple laparoscopies for treatment until hysterectomy. Denies medication trials in the past.Things were better with her bladder here and there and now feels like symptoms are back when she started. She has hx hemorrhoids with itching/burning. She has met with Colorectal specialist but has not done surgical intervention which was discussed.NIghttime is bothering her the worst when she is not distracted - will void prior to bedtime and feels urge to void x 5 times. She will wake around 230 and has to void again. Sees floorworker distributor in [place] with liver detox for hemorrhoids and felt her symptoms went away x 2 months but have returned. She was last in consult on 01/26/24 at which time the plan was further testing including UDS, voiding diary, pelvic U/S, and potassium sensitivity testing. Last visit on 0 04/07/24: Patient reports for awhile things felt better, waited to do her voiding diary. During week of , bladder frequency/urgency worsened again. She states last night got up 10 times from 9 pm to 2 pm. She states sensation to void is there but not painful. She is battling constipation the last several weeks, normal remedies with magnesium not doing what they usually do. She will do liver flush per doctor and prepping for that now. She has had more frequent dull shooting pains in right and left adnexa. Corozal is more painful. She lays in bed and thinks about that at night. Has not had laparoscopy since prior to hysterectomy. Has been 10-12 years, wonders if there is more that needs to be done for this. Would like to meet with surgical MD to discuss. Past Diagnostics/Imaging: -The voiding diary is reviewed on 04/07/24 a nd was completed for 2-3 days duration. Day 1, the patient consumed a total of 76 ounces, of that 16 ounces bladder irritants (coffee). The total void volume was 1,110 mL daytime and 0 mL nighttime (# of nocturia episodes). Total voids 15 times. Largest void 300 mL and average daily void volume 75 m L every 1-2 hours, voided 4 times prior to bedtime. Leaking episodes and urgency recorded as: urgency low to moderate with each void, no leaks. Day 2, the patient consumed a total of 68 ounces, of that 8 ounces bladder irritants (coffee). The total void volume was 1,240 mL daytime and 200 mL nighttime (#1 of nocturia episodes). Daily voids 15 times. Largest void 200 mL and average daily void volume 80 mL every 1-2 h ours 6 voids between 8117-2854. Leaking episodes and urgency recorded as: low urge with each void, no leaks. Please see entire voiding diary scanned report under urogynecology section of chart. -Urodynamics 03/10/24: The complex uroflow showed a peak flow rate of 9.6 ml/s and a void volume of 162.3 ml. The flow pattern showed a prolonged flow. A 12fr straight catheter was inserted using sterile technique. The residual urine was 40 ml.After confirming a normal urinalysis, she was placed in a semiseated position. Three EMG electrodes were placed, one on the inner thigh and one at the 3 oclock and 9 oclock positions of the rectum. A dual catheter was placed in the urethra to 15 cm using sterile technique. The abdominal pressure catheter was placed at the apex of the vagina. After assuring appropriate placement of the catheters, the complex CMG was started at 50 ml/minute. The patient's first sensation to void was 17.7 ml, second at 63.1 ml and maximum capacity was 341.2 ml.The bladder showed normal accommodation over time without any evidence of inappropriate rising pressures. There were no uninhibited bladder contractions noted. The urethral pressure profile was performed which showed a normal freeman shaped curve and a maximum urethral closure pressure of 88 cmH2O.Intraabdominal pressure study did reveal a leak point pressure of 147 cmH2O. The patient did experience a small splash of urinary leakage with cough while standing at capacity.The voiding pressure study revealed a flow rate of 10ml/s with a Pdet of 24.3 cmH2O and a void volume of 446.2 ml. The computed residual urine was 0 ml.EMG was normal. Prolonged uroflow, low sensations x 3, no DO, LPP 147 cmH20 at capacity, and normal voiding pressure study. -Potassium sensitivity 03/28/24: NEGATIVE for Interstitial Cystitis -Pelvic U/S 02/11/24: Uterus - surgically absent Endometrium - surgically absent Right ovary - not seen d/t overlying bowel gas Left ovary - uremarkable only seen on TA No abnexal abnormalities seen No free fluid seen Prevoid bladder 176.4 mL, postvoid bladder volume 19.2 mL Past Treatments/Procedures: -Denies Past Medications: -Denies Plan was to consult with surgeon regarding possibility of laparoscopy and also schedule PFPT - she did not complete any of these appointments. Today, 08/04/24:. * ROS: A ll Other Systems: Review of Systems (ROS) S [facility] for details. * Medical History: C hicken pox, Lymes disease, Gall baldder disease, Liver disease/hepatitis, Hypothyroid, kidney Infection, Bladder infection, Endometriosis, Ovarian cyst, Arthiritis, Hemorroids. * Substitute Nurse History: D ate of Last Period: H ysterectomy (Has ovaries). B irth Control: H ysterectomy. S exual Activity C urrently sexually active. S exually Tranmitted Disease (STD) N one. A bnormal Pap Smear N ever Had One. * OB History: G PAL G [id number]. * Surgical History: G all Bladder Surgery , Hysterectomy , fusions , ovarian cysts . * Hospitalization/Major Diagno stic Procedure: P ost Surgeries , Gall Bladder . * Family History: Materanl Grandfather: Colon Cancer. * Social History: T obacco Use: T obacco Control (Standard) T obacco use: N onsmoker D rugs/Alcohol: D rugs H ave you used drugs other than those for medical reasons in the past 12 months? N o Caffeine I ntake: 1 -2 some days Do you smoke marijuana?: Admits occasionally. Do you drink alcohol?: 2-3x a month. M iscellaneous: E xercise: yes, 1-2 times per week, walking. * Medications: N one * Allergies: M acrobid: hives, swelling, itching, redness - Allergy. Objective: * Vitals: * Examination: * General Examination: GENERAL APPEARANCE: i n no acute distress, well developed, well nourished. HEAD n ormocephalic, atraumatic. SKIN: O bserved skin is clean, dry, intact without suspicious lesions or rash. PSYCH: a lert, oriented, judgement and insight good, mood/affect full range, speech clear. Assessment: * Assessment: 1. M ixed incontinence urge and stress - N39.46 (Primary) 2 . D yspareunia, female - N94.10 3 . H x of endometriosis - Z87.42 4 . P FD (pelvic floor dysfunction) - M62.89 Plan: * Treatment: 2. D yspareunia, female Notes: Discuss PFPT and vaginal valium suppository if needed - she will notify provider. Review other options including dry needling pelvic floor, Marita, pelvic floor botox, etc if needed with PT 3. H x of endometriosis Notes: Review her U/S today and that no ovarian abnormalities seen. However, she has intermittent pain in adnexa and desires a MD consult to discuss if a laparoscopy is indicated given her symptoms and time since last done 10+ years ago. 4. P FD (pelvic floor dysfunction) Notes: See above plan for PFPT evaluation and treatment. * Preventive Medicine: YOUR PREVENTIVE WELLNESS PLAN: B reast Cancer Screening (Mammogram): My last mammogram was done on: 0 04/06/2021 Benign C ervical Cancer Screening (Pap Smear): My last Pap smear was done on: H ysterectomy (Has Ovaries) O steoporosis Screening (Bone Density Measurement): My last bone density was done on: N ever C olorectal Cancer Screening: Last Done Colonoscopy N ever * Follow Up: P T as scheduled, bladder f/u 3 months with Tish Khan MD consult for endometriosis * Images: Billing Information: * Visit Code: 44798 Office Visit, Est Pt., Level 4. * Procedure Codes: * Electronic signature of DIYA Garcia on 01/30/2025 at 10:40 AM CDT Sign off status: Pending * Provider: IDYA Ray Date: 0 08/04/2024 Generated for Damoni ng/Kin/eTransmitting on: 1 10:40 AM CDT History and Physical Notes * HPI (History of Present Illness) Category Sub-Category Detail Notes Category Not es *General Lon is a 44 year old perimenopausal female who presents as a bladder follow-up for urinary urgency/frequency, incomplete emptying,aching in lower abdomen from self referral source. She reports this has been occuring x 6 months duration of time. Past medical history is positive for gallbladder disease, chicken pox, liver disease, thyroid problem, kidney and bladder infections, endometriosis, ovarian cysts, arthritis and surgical history hysterectomy d/t endometriosis. Pain with intrcourse has returned the last couple years.Diagnosed in young 20s with endometriosis, had a couple laparoscopies for treatment until hysterectomy. Denies medication trials in the past.Things were better with her bladder here and there and now feels like symptoms are back when she started. She has hx hemorrhoids with itching/burning. She has met with Colorectal specialist but has not done surgical intervention which was discussed.NIghttime is bothering her the worst when she is not distracted - will void prior to bedtime and feels urge to void x 5 times. She will wake around 230 and has to void again. Sees floorworker distributor in [place] with liver detox for hemorrhoids and felt her symptoms went away x 2 months but have returned. She was last in consult on 01/26/24 at which time the plan was further testing including UDS, voiding diary, pelvic U/S, and potassium sensitivity testing. Last visit on 04/07/24: Patient reports for awhile things felt better, waited to do her voiding diary. During week of , bladder frequency/urgency worsened again. She states last night got up 10 times from 9 pm to 2 pm. She states sensation to void is there but not painful. She is battling constipation the last several weeks, normal remedies with magnesium not doing what they usually do. She will do liver flush per doctor and prepping for that now. She has had more frequent dull shooting pains in right and left adnexa. Corozal is more painful. She lays in bed and thinks about that at night. Has not had laparoscopy since prior to hysterectomy. Has been 10-12 years, wonders if there is more that needs to be done for this. Would like to meet with surgical MD to discuss. Past Diagnostics/Imaging: - The voiding diary is reviewed on 04/07/24 and was completed for 2-3 days duration. Day 1, the patient consumed a total of 76 ounces, of that 16 ounces bladder irritants (coffee). The total void volume was 1,110 mL daytime and 0 mL nighttime (# of nocturia episodes). Total voids 15 times. Largest void 300 mL and average daily void volume 75 mL every 1-2 hours, voided 4 times prior to bedtime. Leaking episodes and urgency recorded as: urgency low to moderate with each void, no leaks. Day 2, the patient consumed a total of 68 ounces, of that 8 ounces bladder irritants (coffee). The total void volume was 1,240 mL daytime and 200 mL nighttime (#1 of nocturia episodes). Daily voids 15 times. Largest void 200 mL and average daily void volume 80 mL every 1-2 hours 6 voids between 0649-6067. Leaking episodes and urgency recorded as: low urge with each void, no leaks. Please see entire voiding diary scanned report under urogynecology section of chart. -Urodynamics 03/10/24: The complex uroflow showed a peak flow rate of 9.6 ml/s and a void volume of 162.3 ml. The flow pattern showed a prolonged flow. A 12fr straight catheter was inserted using sterile technique. The residual urine was 40 ml.After confirming a normal urinalysis, she was placed in a semiseated position. Three EMG electrodes were placed, one on the inner thigh and one at the 3 oclock and 9 oclock positions of the rectum. A dual catheter was placed in the urethra to 15 cm using sterile technique. The abdominal pressure catheter was placed at the apex of the vagina. After assuring appropriate placement of the catheters, the complex CMG was started at 50 ml/minute. The patient's first sensation to void was 17.7 ml, second at 63.1 ml and maximum capacity was 341.2 ml.The bladder showed normal accommodation over time without any evidence of inappropriate rising pressures. There were no uninhibited bladder contractions noted. The urethral pressure profile was performed which showed a normal freeman shaped curve and a maximum urethral closure pressure of 88 cmH2O.Intraabdominal pressure study did reveal a leak point pressure of 147 cmH2O. The patient did experience a small splash of urinary leakage with cough while standing at capacity.The voiding pressure study revealed a flow rate of 10ml/s with a Pdet of 24.3 cmH2O and a void volume of 446.2 ml. The computed residual urine was 0 ml.EMG was normal. Prolonged uroflow, low sensations x 3, no DO, LPP 147 cmH20 at capacity, and normal voiding pressure study. -Potassium sensitivity 03/28/24: NEGATIVE for Interstitial Cystitis -Pelvic U/S 02/11/24: Uterus - surgically absent Endometrium - surgically absent Right ovary - not seen d/t overlying bowel gas Left ovary - uremarkable only seen on TA No abnexal abnormalities seen No free fluid seen Prevoid bladder 176.4 mL, postvoid bladder volume 19.2 mL Past Treatments/Procedures: -Denies Past Medications: -Denies Plan was to consult with surgeon regarding possibility of laparoscopy and also schedule PFPT - she did not complete any of these appointments. Today, 08/04/24: Examination Category Sub-Category Detail Notes Category Not es *General Examination GENERAL APPEARANCE: in no a cute distress, well developed, well nourished HEAD normocephalic, atrau matic SKIN: Observed skin is ibis an, dry, intact without suspicious lesions or rash PSYCH: alert, oriented, viktoriya gement and insight good, mood/affect full range, speech clear
--- OUTSIDE RECORDS SUMMARY | 2024-08-11 05:15 | XMS_ITS ---
Author Organization [employer] [facility] Address [address] [place] [address] Care Team Providers Care Guest Room Attendant Name Role Phone None, No PCP Primary Care Provider Arlene Waters Unavailable [phone] Aga Go Unavailable [phone] Encounters Encounter Location Date Provider Diagnosis [address] [place] [phone] 08/11/2024 Aga Go Plan Of Treatment No Information Progress Notes * Marcos FISHERPiaOB: 8 (45 yo F)Acc No.[id number]:08/11/2024 Patient: Lon ZARATE Provider: Betty Go DPT :1980 A ge:44 Y S ex:Female Date:08/11/2024 Address:[address] [place], [place] [id number] Pcp:No PCP None Subjective: * Chief Complaints: * * Medical History: Objective: * Vitals: Therapeutic Interventions: Assessment: Plan: * Treatment: * Images: Billing Information: * Visit Code: * Procedure Codes: * Electronic signature of Heidi Go DPT on 01/30/2025 at 10:40 AM CDT Sign off status: Pending * Provider: Betty Go DPT Date: 0 08/11/2024 Generated for Printi ng/Faxing/eTransmitting on: 1 10:40 AM CDT
--- OUTSIDE RECORDS SUMMARY | 2024-08-18 06:45 | XMS_ITS ---
Author Organization [facility] Address [address] [place] [address] Care Team Providers Care Investigation Division Lieutenant Name Role Phone None, No PCP Primary Care Provider Arlene Waters Unavailable [phone] Aga Go Unavailable [phone] Encounters Encounter Location Date Provider Diagnosis [address] [place] [phone] 08/18/2024 Aga Go Plan Of Treatment No Information Progress Notes * Marcos FISHERPiaOB: 8 (45 yo F)Acc No.[id number]:08/18/2024 Patient: Lon ZARATE Provider: Betty Go DPT :1980 A ge:44 Y S ex:Female Date:08/18/2024 Address:[address] [place], [place] [address], [id number] Pcp:No PCP None Subjective: * Chief Complaints: * * Medical History: Objective: * Vitals: Therapeutic Interventions: Assessment: Plan: * Treatment: * Images: Billing Information: * Visit Code: * Procedure Codes: * Electronic signature of Heidi Go DPT on 01/30/2025 at 10:40 AM CDT Sign off status: Pending * Provider: Betty Go DPT Date: 0 08/18/2024 Generated for Printi ng/Faxing/eTransmitting on: 1 10:40 AM CDT
--- OUTSIDE RECORDS SUMMARY | 2024-08-25 04:30 | XMS_ITS ---
Author Organization [facility] Address [address] [place] [address] Care Team Providers Care Planer Off Bearer Name Role Phone None, No PCP Primary Care Provider Arlene Waters Unavailable [phone] Aga Go Unavailable [phone] Encounters Encounter Location Date Provider Diagnosis [address] [place] [id number] 08/25/2024 Aga Go Plan Of Treatment No Information Progress Notes * Marcos FISHERPiaOB: 8 (45 yo F)Acc No.[id number]:08/25/2024 Patient: Lon ZARATE Provider: Betty Go DPT :1980 A ge:44 Y S ex:Female Date:08/25/2024 Address:[address] [place], [place] [address], [id number] Pcp:No PCP None Subjective: * Chief Complaints: * * Medical History: Objective: * Vitals: Therapeutic Interventions: Assessment: Plan: * Treatment: * Images: Billing Information: * Visit Code: * Procedure Codes: * Electronic signature of Heidi Go DPT on 01/30/2025 at 10:39 AM CDT Sign off status: Pending * Provider: Betty Go DPT Date: 0 08/25/2024 Generated for Printi ng/Faxing/eTransmitting on: 1 10:39 AM CDT
--- OUTSIDE RECORDS SUMMARY | 2024-09-01 06:00 | XMS_ITS ---
Author Organization [facility] Address [address] [place] [address] Care Team Providers Care Billing Services Manager Name Role Phone None, No PCP Primary Care Provider Arlene Waters Unavailable [phone] Aga Go Unavailable [phone] Encounters Encounter Location Date Provider Diagnosis [address] [place] [id number] 09/01/2024 Aga Go Plan Of Treatment No Information Progress Notes * Marcos FISHERPiaOB: 8 (45 yo F)Acc No.[id number]:09/01/2024 Patient: Lon ZARATE Provider: Betty Go DPT :1980 A ge:44 Y S ex:Female Date:09/01/2024 Address:[address] [place], [place] [address], [id number] Pcp:No PCP None Subjective: * Chief Complaints: * * Medical History: Objective: * Vitals: Therapeutic Interventions: Assessment: Plan: * Treatment: * Images: Billing Information: * Visit Code: * Procedure Codes: * Electronic signature of Heidi Go DPT on 01/30/2025 at 10:40 AM CDT Sign off status: Pending * Provider: Betty Go DPT Date: 0 09/01/2024 Generated for Printi ng/Faxing/eTransmitting on: 1 10:40 AM CDT
[2025-01-30] VITALS (9 sets, daily range): BP systolic 107–116; BP diastolic 56–77; PULSE 39–47; RESP 18; TEMP 36.7; O2SAT 98–100; BMI 25.1
--- OUTSIDE RECORDS SUMMARY | 2025-01-30 10:40 | XMS_ITS | Clinical Summary ---
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 Not on file Obstetrics History Last Filed Vital Signs Vital Sign Reading Time Taken Comments Blood Pressure 109/67 06/07/2024 7:30 PM IMMUNOLOGY SPECIALIST Pulse 51 06/07/2024 7:30 PM IMMUNOLOGY SPECIALIST Temperature 36.8 C (98.3 F) 06/07/2024 5:20 PM IMMUNOLOGY SPECIALIST Respiratory Rate 15 06/07/2024 7:30 PM IMMUNOLOGY SPECIALIST Oxygen Saturation 99% 06/07/2024 7:30 PM IMMUNOLOGY SPECIALIST Inhaled Oxygen Concentration - - Weight 83.9 kg (185 lb) 06/07/2024 5:20 PM IMMUNOLOGY SPECIALIST Height 175.3 cm (5' 9) 06/07/2024 5:20 PM IMMUNOLOGY SPECIALIST Body Mass Index 27.32 06/07/2024 5:20 PM IMMUNOLOGY SPECIALIST Plan of Treatment Health Maintenance Due Date [...] history exists Mammogram for age 45-75 2023 Influenza Vaccine (#1) 2024 RSV vaccine for adults or (1 - 1-dose 75+ series) 2053 Hepatitis B series for 19+ Completed 12/05, 07/05/1997, 06/04/1997 Pneumococcal series for age 6-49 Aged Out No longer eligible based on patient's age to complete this topic Procedures Procedure Name Priority Date/Time Associated Diagnosis Comments FORMULA BOTTLER THIN PREP PAP SCREEN IMAGED Routine 02/20/2016 10:00 AM IMMUNOLOGY SPECIALIST LIPID PANEL Routine 10/19/2006 10:32 AM CDT Hypercholesterolemi a from Last 3 Months or Most Recently Relevant to Health Maintenance Results * FORMULA BOTTLER THIN PREP PAP SCREEN IMAGED (02/20/2016 10:00 AM IMMUNOLOGY SPECIALIST) Case Report Gynecologic Cytology Report Case: [id number] Authorizing Provider: Lali Foote MD Collected: 02/20/2016 1000 First Screen: Reza Lewis Received: 02/22/2016 0838 Rescreen: Freddy Mosher Specimen: FORMULA BOTTLER ThinPrep Vial Screening, Cervical/Vaginal 03/03/2016 1:37 PM IMMUNOLOGY SPECIALIST [facility] INTERPRETATION/ RESULT NEGATIVE FOR INTRAEPITHELIAL LESION OR MALIGNANCY (NIL) (none) 03/03/2016 1:37 PM IMMUNOLOGY SPECIALIST [facility] at 1337 IMMUNOLOGY SPECIALIST SPECIMEN ADEQUACY Satisfactory for evaluation Endocervical component present 03/03/2016 1:37 PM IMMUNOLOGY SPECIALIST [facility] HPV REQUEST HPV and PAP 03/03/2016 1:37 PM IMMUNOLOGY SPECIALIST [facility] Date of LMP 02/09/2016 03/03/2016 1:37 PM IMMUNOLOGY SPECIALIST [facility] Last Pap Date 11/29/2012 03/03/2016 1:37 PM IMMUNOLOGY SPECIALIST [facility] Last Pap Result 6 1:37 PM [facility] Comment:WNL, -HPV Automated Review Successful 03/03/2016 1:37 PM [facility] Comment:Specimen processed s uccessfully by automated process chemist device, [employer] Imaging System, [employer] ANCILLARY TESTING FORMULA BOTTLER HPV Ordered, Please see separate report 03/03/2016 1:37 PM [facility] Note The pap test is a screening technique, not a diagnostic procedure. It is used primarily to screen for squamous cancers and precursor lesions. Published studies have shown that it is subject to both false negative and false positive results. The pap test should not be used as the sole means to diagnose or exclude pre-malignant and malignant lesions. 03/03/2016 1:37 PM [facility] Other (Cervical/Vagina l) 02/20/2016 10:00 AM IMMUNOLOGY SPECIALIST 02/22/2016 8:38 AM IMMUNOLOGY SPECIALIST us Lali Foote MD PATHOLOGY/CYTOLOGY Final R esult [facility] [address] [place] [address], * (ABNORMAL) LIPID PANEL (10/19/2006 10:32 AM CDT) CHOLESTEROL,TOTAL 225(H) 110 - 199 mg/dL [facility] TRIGLYCERIDES 128 40 - 149 mg/dL [facility] HDL CHOLESTEROL 66 >40 mg/dL [facility] CHOL/HDL RATIO 3.41 <4.51 [facility] LDL CHOLESTEROL 133(H) <131 mg/dL [facility] PATIENT STATUS Fasting [facility] Blood specimen (specimen) BLOOD SPECIMEN / Unknown 10/19/2006 10:32 AM CDT 10/19/2006 10:26 AM CDT us Shireen KEANE CHEMISTRY Final R esult [facility] [place]NAL ZIP [address] [address] from Last 3 Months or Most Recently Relevant to Health Maintenance Insurance [place] [id number] Care Teams Web Feeder Relationship Specialty Start Date End Date Unknown, Doctor . PCP - General 04/19/08 Sonny Stoner MD 12/10/10
--- OUTSIDE RECORDS SUMMARY | 2025-01-30 10:40 | XMS_ITS | Patient Health Record ---
Author Organization [email or web address] Address [address] [place] [address] Care Team Providers Care Blueprint Assembler Name Role Phone None, No PCP Primary Care Provider UnavailArlene Rowan Unavailable [phone] Rick Rendon Unavailable [phone] MARTHA [facility], Mammography Unavailable Unav ailable Aga Go Unavailable [phone] Tish Sandoval Unavailable [phone] Tish England Unavailable [phone] Allergies Allergen (clinical drug ingredient) Drug/Non Drug Allergy documented on EMR Reaction Allergy Type Onset Date Status nitrofurantoin, macrocrystals / nitrofurantoin, monohydrate Macrobid hives, swelling, itching, redness Drug Allergy Active Results Component Value Reference Range Notes Urinalysis, Routine (IH) Reviewed date:03/28/2024 01:26:21 PM Interpretation: Performing Lab: Notes/Report: Statue Maker: [facility] ([id number]), [place] - Lab Urinalysis, Routine (IH) Reviewed date:03/10/2024 10:09:08 AM Interpretation: Performing Lab: Notes/Report: Statue Maker: [facility] ([id number]), [place] - Lab CULTURE, URINE, ROUTINE Reviewed date:03/12/2024 02:44:47 PM Interpretation:Normal Performing Lab:CB, [facility] [id number] [facility], [facility] Joaquín Mccain Notes/Report: 0 CULTURE, URINE, ROUTINE SEE NOTE CULTURE, URINE, ROUTINE Micro Number: [id number] Test Status: Final Specimen Source: Urine, catheter Specimen Quality: Adequate Result: No Growth TESTOSTERONE, TOTAL, LC/MS/M S Reviewed date:02/08/2024 12:43:51 PM Interpretation: Performing Lab:Z[facility]E [facility] [address], [address], [place] Luz Marina Richard MD,PhD Notes/Report: TESTOSTERONE, TOTAL, MS 25 2-45 ng/dL [email or web address] (This link is being provided for informational/educational purposes only.) (Note) This test was developed and its analytical performance characteristics have been determined by [employer]. It has not been cleared or approved by the FDA. This assay has been validated pursuant to the CLIA regulations and is used for clinical purposes. [facility] [address] [address],[address] [facility] [address] Luz Marina Richard MD, PhD For additional information, please refer to [facility] Reviewed date:02/08/2024 12:43:51 PM Interpretation: Performing Lab:[facility] [address], [place] HospitalInjpXV[address] Joaquín Mccain Notes/Report: FSH 3.3 Reference Range Follicular Phase 2.5-10.2 Mid-cycle Peak 3.1-17.7 Luteal Phase 1.5- 9.1 Postmenopausal 23.0-116.3 ESTRADIOL Reviewed date:02/08/2024 12:43:51 PM Interpretation: Performing Lab:JENN[facility]ER [facility] [place] [address], [place] Joaquín Mccain Notes/Report: ESTRADIOL 153 Reference Range Follicular Phase: 19-144 Mid-Cycle: 64-357 Luteal Phase: 56-214 Postmenopausal: < or = 31 Reference range established on post-pubertal patient population. No pre-pubertal reference range established using this assay. For any patients for whom low Estradiol levels are anticipated (e.g. males, pre-pubertal children and hypogonadal/post-menopausal females), the [facility] Estradiol, Ultrasensitive, LCMSMS assay is recommended (order code 14347). Please note: patients being treated with the drug fulvestrant (Faslodex(R)) have demonstrated significant interference in immunoassay methods for estradiol measurement. The cross reactivity could lead to falsely elevated estradiol test results leading to an inappropriate clinical assessment of estrogen status. [facility] order code 10518-[id number], Ultrasensitive LC/MS/MS demonstrates negligible cross reactivity with fulvestrant. Reason For Referral No Information Social History Tobacco Use: Social History Observation Description Date Details (start date - stop date) Never Smoker NA - NA Tobacco Control (Standard) Question Answer Notes Tobacco use: Nonsmoker Problems Problem Type SNOMED Code ICD Code Onset Dates Problem Status W/U Status Risk Notes Problem Menopause (533216183) Menopausal and female climacteric states (N95.1) Active confirmed Problem SI - Stress incontinence (04894216) Stress incontinence (N39.3) Active confirmed Problem Pain in female genitalia on intercourse (55547691) Dyspareunia, female (N94.10) Active confirmed Problem Female urinary stress incontinence (80861874) SHAMA (stress urinary incontinence, female) (N39.3) Active confirmed Problem Overactive urinary bladder (disorder) (096106199) OAB (overactive bladder) (N32.81) Active confirmed Problem Mixed incontinence (340924581) Mixed incontinence urge and stress (N39.46) Active confirmed Problem Midline cystocele (891605956) POP-Q stage 2 cystocele (N81.10) Active confirmed Problem Herniation of rectum into vagina (297024969) POP-Q stage 2 rectocele (N81.6) Active confirmed Problem Hemorrhoids (disorder) (59684984) Hemorrhoids, external (K64.4) Active confirmed Vital Signs Blood pressure diastolic 68 mm Hg 04/07/2024 Height 68 in 04/07/2024 Blood pressure systolic 102 mm Hg 04/07/2024 Weight 190 lbs 04/07/2024 BMI 28.89 kg/m2 04/07/2024 Encounters Encounter Location Date Provider Diagnosis [facility] [address] [place] [address] 04/07/2024 Tish England Mixed incontinence urge and stress N39.46 ; Dyspareunia, female N94.10 ; Hx of endometriosis Z87.42 and PFD (pelvic floor dysfunction) M62.[address] [place], [place] [id number] 06/30/2024 Aga Go High-tone pelvic floor dysfunction M62.89 ; OAB (overactive bladder) N32.81 ; Urinary urgency R39.15 ; Dyspareunia, female N94.10 and SHAMA (stress urinary incontinence, female) N39.3 [place] [address] [place] [address] 03/10/2024 Rick Julieta Urinary frequency R35.0 ; Urinary urgency R39.15 ; Stress incontinence N39.3 ; Feeling of incomplete bladder emptying R39.14 ; POP-Q stage 2 cystocele N81.10 and POP-Q stage [address] [id number] 06/09/2024 Aga Go High-tone pelvic floor dysfunction M62.89 ; OAB (overactive bladder) N32.81 ; Urinary urgency R39.15 ; Dyspareunia, female N94.10 and SHAMA (stress urinary incontinence, female) N39.3 [facility] [address] [place] [address] 02/02/2024 Arlene Alvarez Menopausal and femal e climacteric states N95.1 [facility] [address] [place] [id number] 04/07/2024 Aga Go High-tone pelvic floor dysfunction M62.89 ; OAB (overactive bladder) N32.81 ; Urinary urgency R39.15 ; Dyspareunia, female N94.10 and SHAMA (stress urinary incontinence, female) N39.3 [place] [address] [place] [address] 02/11/2024 Tish England Menopausal and femal e climacteric states N95.1 [place] [address] [place] [address] 03/28/2024 Rick Rosarioford Urinary frequency R35.0 ; Urinary urgency R39.15 ; Bladder pain R39.89 and Feeling of incomplete bladder emptying R39.14 [place] [address] [place] [address] 03/10/2024 Tish England [facility] [address] [facility] [address] [place], [place] [id number] 08/03/2024 Tish England [facility] [address] [place] [address] 03/08/2024 Rick [facility] [address] [place] [address] 03/07/2024 Rick [facility] [address] [place] [address] 04/04/2024 Aga Go Assessments Encounter Date Diagnosis (ICD Code) Assessment Notes Treatment Notes Treatment Clinical Notes Section Notes 02/02/2024 Menopausal and female climacteric states (ICD-10 - N95.1) 02/11/2024 Menopausal and female climacteric states (ICD-10 - N95.1) 03/10/2024 Urinary frequency (ICD-10 - R35.0) 03/10/2024 Urinary urgency (ICD-10 - R39.15) 03/28/2024 Urinary frequency (ICD-10 - R35.0) 03/28/2024 Urinary urgency (ICD-10 - R39.15) 04/07/2024 Dyspareunia, female (ICD-10 - N94.10) Discuss [...] Will reach out fo provider if desired. 04/07/2024 OAB (overactive bladder) (ICD-10 - N32.81) [...] in symptoms and met her goals. 06/30/2024 High-tone pelvic floor dysfunction (ICD-10 - [...] in symptoms and met her goals. 06/30/2024 OAB (overactive bladder) (ICD-10 - N32.81) [...] improvements in symptoms and met her goals. 03/28/2024 Bladder pain (ICD-10 - R39.89) 04/07/2024 Hx of endometriosis (ICD-10 - Z87.42) Review her U/S today and that no ovarian abnormalities seen. However, she has intermittent pain in adnexa and desires a MD consult to discuss if a laparoscopy is indicated given her symptoms and time since last done 10+ years ago. 04/07/2024 Urinary urgency (ICD-10 - R39.15) Response [...] goals. 03/10/2024 Stress incontinence (ICD-10 - N39.3) 03/10/2024 Feeling of incomplete bladder emptying (ICD-10 - R39.14) 03/28/2024 Feeling of incomplete bladder emptying (ICD-10 [...] in symptoms and met her goals. 04/07/2024 PFD (pelvic floor dysfunction) (ICD-10 - M62.89) See above plan for PFPT evaluation and treatment. 06/30/2024 Urinary urgency (ICD-10 - R39.15) Response [...] in symptoms and met her goals. 06/09/2024 Urinary urgency (ICD-10 - R39.15) Response [...] in symptoms and met her goals. 04/07/2024 SHAMA (stress urinary incontinence, female) (ICD-10 [...] POP-Q stage 2 cystocele (ICD-10 - N81.10) 03/10/2024 POP-Q stage 2 rectocele (ICD-10 - N81.6) 06/30/2024 SHAMA (stress urinary incontinence, female) (ICD-10 [...] in symptoms and met her goals. 06/09/2024 SHAMA (stress urinary incontinence, female) (ICD-10 [...] improvements in symptoms and met her goals. 02/02/2024 Other -HRT Labs drawn today. Reasoning for labs discussed in detail -HRT options reviewed in detail, including estradiol and testosterone, risks/benefits, common side effects, costs and dosing schedule. -Counseled on the differences between FDA approved bio-identical hormone replacement, and non-FDA approved compounded bioidentical hormone replacement. -Patient education and informed consent in HRT packet reviewed. -Counseled on associated increased risks for MA, CVA, VTE, and breast cancer with some forms of hormone replacement therapy. HRT could decrease associated lifetime risks, specifically with the use of bioidentical hormones including estradiol, progesterone, and/or testosterone preparations. Bioidentical hormonal therapies have not been shown to significantly increase risks for MA, CVA, VTE, and/or breast cancer, but do not guarantee prevention of developing these risks if used. emt intermediate associated risks of non-FDA approved bioidentical compounded hormones are not known. -Discussed potential side effects of pellet therapy including fluid retention, swelling, breast tenderness, nipple sensitivity, mood swings and irritability, acne, hair loss and/or hair growth. -Breast cancer screening policy reviewed and printed handout given. Mammogram needed prior to pellet insert. -Annual mammogram, clinical breast exam and TRACK LAYER HEAD exams recommended -Plan for follow-up in next available visit to review lab results and proceed with treatment options if desired and indicated. Schedule pellet insert 1 week after mammogram is scheduled. 04/07/2024 Other Treatment Plan: Frequency: weekly Duration: [...] improvements in symptoms and met her goals. 03/24/2024 Other Follow up as scheduled in 2 weeks. Potassium Sensitivity Testing completed by Vinita Alvarez LPN under the direction of Dr Rick Rendon. 03/28/2024 Other Follow up as scheduled in 1 week. Potassium Sensitivity Testing completed by Vinita Alvarez LPN under the direction of Dr Rick Rendon. 06/09/2024 Other Treatment Plan: Frequency: weekly Duration: [...] in symptoms and met her goals. 03/10/2024 Other We discussed the urodynamics procedure [...] under the direction of Dr Rick Rendon. 06/30/2024 Other Treatment Plan: Frequency: weekly Duration: [...] Start Date Coverage End Date [facility] [address] [place], [place] [id number] Self - patient is the insured Medical (General) History Medical History History ICD Code chicken pox lymes disease gall baldder disease liver disease/hepatitis Hypothyroid kidney Infection Bladder infection endometriosis ovarian cyst arthiritis hemorroids Surgical History Surgery Date(Month/Year) Gall Bladder Surgery Hysterectomy fusions ovarian cysts Hospitalization History Reason Date(Month/Year) Gall Bladder Post Surgeries
--- OUTSIDE RECORDS SUMMARY | 2025-01-30 10:40 | XMS_ITS | CCD ---
Author Name Interface, [id number] [employer] Address [address] [place] [address] [facility] Address [address] [place] [address] Reason for Visit Social History Date Name Value 12/03/2024 Sex Unknown
--- OUTSIDE RECORDS SUMMARY | 2025-01-30 10:40 | XMS_ITS | Clinical Summary ---
Author Organization [facility] Address [address] [place] [address] Care Team Providers Care Configuration Consultant Name Role Phone Ronnie Vizcarra MD Primary Care Provider [phone] Source Comments You are receiving this document as you are listed as the primary care provider,follow-up provider, or the patient has been referred to you for consultation.This is in compliance with the Medicare and[facility] EHR Incentive Program,which states Providers who transition their patient to another setting of careor provider of care or refers their patient to another provider of care shouldprovide summary care record for each transition of care or referral. [facility] Allerg[facility] Active Allergy Reactions Criticality Noted Date Comments Nitrofurantoin Hives High 01/07/2016 Swelling and itching Medications amphetamine-dext roamphetamine (ADDERALLXR) 30 MG 24 hour [...] COVID-19 Vaccine ( - 2023-2 5 season) 2024 Influenza Vaccine (#1) 2024 Zoster/Shingles Vaccine (1 o f 2) [...] TEST, ROUTINE Routine 05/20/1999 12: 10 PM INDUSTRIAL RELATIONS OFFICER from Last 3 Months or Most Recently Relevant to Health Maintenance Results * PAP SMEAR, ROUTINE (05/20/1999 12:10 PM INDUSTRIAL RELATIONS OFFICER) Pap Smear, Routine See Separate Report Performed at [facility] 05/20/1999 12:1 0 PM INDUSTRIAL RELATIONS OFFICER 05/20/1999 12:11 PM INDUSTRIAL RELATIONS OFFICER us Chio Cantu WEDDING CONSULTANT, GLOVE MACHINE OPERATOR LAB_1 Fin al Result Performing Organization Address City/State/[facility] Co de Phone Number [facility] [address] [address] from Last 3 Months or Most Recently Relevant to Health Maintenance Insurance [employer] SELF INSURED Care Teams Configuration Consultant Relationship Specialty Start Date End Date Ronnie Vizcarra MD [address] [place] [id number] PCP - General 03/02/13
--- NOTE | 2025-01-30 11:06 | ED_ITS ---
HPI - General Adult General Date Seen: 01/30/25 Chief complaint: Back Injury/Pain Stated complaint: Lower back pain Time Seen by Provider: 01/30/25 10:52 History of Present Illness HPI narrative: Patient is a 45-year-old woman here for evaluation of atraumatic back pain which started on Thursday, she presents to the ER on Thursday. She says that symptoms were mild at the onset but have gradually gotten worse and are now severe. Pain feels best when she is standing up, laying down and sitting or other worst. Pain is located in bilateral flanks all the way down her back. She recalls having pain similar in severity when she had a kidney infection once, as well as when she had an ovarian cyst. She denies any abdominal or pelvic pain however. She has not had any fevers or chills, no weakness or numbness, no radiating pain, no dysuria, no bowel or bladder changes. She status post hysterectomy. She still has her ovaries. She has been taking Tylenol and ibuprofen without any relief. Related Data Home Medications ?Medication ?Instructions ?Recorded ?Confirmed No Known Home Medications 01/30/2501/05 Allergies Allergy/AdvReac Type Severity Reaction Status Date / Time nitrofurantoin (From Allergy Mild Hives Verified 01/30/25 10:53 Macrobid) Review of Systems Status of ROS: Reports: 10 or more systems reviewed and unremarkable except as noted in History and below [facility] Medical History History of Lyme disease ?Z86.19 - Personal history of other infectious and parasitic diseases (ICD- 10) History of thyroid disease ?Z86.39 - Personal history of other endocrine, nutritional and metabolic disease (ICD-10) HLA B27 (HLA B27 positive) ?Z15.89 - Genetic susceptibility to other disease (ICD-10) Psoriatic arthritis ?L40.50 - Arthropathic psoriasis, unspecified (ICD-10) Surgical History History of colonoscopy ?Z98.890 - Other specified postprocedural states (ICD-10) History of orthopedic surgery ?Z98.890 - Other specified postprocedural states (ICD-10) History of tonsillectomy ?Z90.89 - Acquired absence of other organs (ICD-10) History of salpingectomy ?Z90.79 - Acquired absence of other genital organ(s) (ICD-10) History of laparoscopic cholecystectomy ?Z90.49 - Acquired absence of other specified parts of digestive tract (ICD- 10) H/O: hysterectomy ?Z90.710 - Acquired absence of both cervix and uterus (ICD-10) Family History Mother Osteoarthritis Colon polyp Father Osteoarthritis Social History Narrative: Patient works as a dental medical receptionist assistant. 4 children. Non-smoker. Alcohol, rare. No illicit drug use. What is your current living situation?: I presently have a place to live In the past 12 months, utilities in danger of being shut off: no In past 12 months, lack of transportation kept you from medical appts, meetings, work, or getting things needed for daily living: no In the past 12 mos, have been you worried that your food would run out before you had money to buy more?: never true In the past 12 mos, the food you bought just didn't last and you didn't have money to buy more?: never true Smoking Status: Never smoker How often do you have a drink containing alcohol: monthly or less AUDIT-C Alcohol total score: 1 Non-prescribed substance use: denies use Caffeine: Yes How often does anyone, including family, friends and others, physically hurt you : never How often does anyone, including family, friends and others, insult or talk down to you: never How often does anyone, including family, friends and others, threaten you with harm: never How often does anyone, including family, friends and others, scream or curse at you: never Exam Narrative: Exam Narrative: Vital signs reviewed In general, alert, nontoxic woman. She looks uncomfortable. Head: Normocephalic, atraumatic. Eyes: Sclera clear. Pupils equal and reactive. ENT: Mucous membranes moist. Neck: Supple without adenopathy. Heart: Regular rate and rhythm without murmur. Lungs: Clear. No increased work of breathing, crackles or wheezes. Abdomen: Soft, nontender to palpation. Back: No significant CVA tenderness, perhaps mild on the left, none on the right. Back is otherwise nontender, no visible trauma. Extremities: Well perfused, pulses intact. No significant edema. Neurologic: Alert, conversant. Speech fluent, face symmetric. Moves all extremities equally. Skin: Warm, dry well perfused. Affect: Normal. Const: Vital Signs, click to edit/add: Vital Signs - 24 hr 01/30/25 10:47 01/30/25 12:00 01/30/25 12:01 Temperature 98.1 F Pulse Rate 39 L 41 L Pulse Rate [Pulse Oximeter] 47 L Respiratory Rate 18 Blood Pressure 107/56 L Blood Pressure [Ri ght Upper Arm] 116/63 Pulse Oximetry 100 100 99 Oxygen Delivery Me thod Room Air 01/30/25 12:02 01/30/25 12:15 Temperature Pulse Rate 39 L 41 L Pulse Rate [Pulse Oximeter] Respiratory Rate Blood Pressure 111/68 Blood Pressure [Ri ght Upper Arm] Pulse Oximetry 99 99 Oxygen Delivery Me thod Course Course ED Course: Patient presents with atraumatic back pain worsening over the past several days. No prior history of back pain, but symptoms are exacerbated by movement, certainly may be musculoskeletal. Diagnostic considerations would include disc herniation, diskitis, pyelonephritis, urinary tract infection, ovarian pathology. My suspicion for infectious process is lowered somewhat by the absence of any fever other symptoms, but I do think it is reasonable to check some labs, urine, and the meantime will give some Toradol. She drove herself here and would prefer to be able to drive home, will see how she does with Toradol. She says that she does not feel significantly improved with Toradol but does not want anything else for pain as she would like to be able to drive. Labs are all entirely normal, white count hemoglobin, CRP, LFTs, UA, everything is negative. She is status post hysterectomy. Discussed this with her, she continues to wonder what is causing her symptoms. Based on her exam and normal lab work, I would suspect this is musculoskeletal, we discussed doing additional testing such as with CT scan or ultrasound, but reviewed with her that in the absence of any abdominal pain my suspicion for a cause such as ovarian cyst is low, she has very diffuse back pain, and ovarian cysts seems an odd cause for that. Likewise, with no abdominal pain or tenderness and tired early normal labs, CT scan seems of unlikely usefulness. Overall, she decided to hold off on any further testing. Discussed reasons to return such as fevers, abdominal pain, vomiting, weakness or any other neurologic changes. Offered a short course of narcotics or muscle relaxers, she declines those. Primary care follow-up if not improving over the next few days. Vital Signs Vital signs: Initial Vital Signs Temperature 98.1 F 01/30/25 10:47 Temperature Source Temporal Artery Scan 01/30/25 10:47 Pulse Rate 47 L 01/30/25 10:47 Respiratory Rate 18 01/30/25 10:47 Blood Pressure 116/63 01/30/25 10:47 Blood Pressure Mean 80 01/30/25 10:47 Blood Pressure Position Sitting 01/30/25 10:47 Pulse Oximetry 100 01/30/25 10:47 Oxygen Delivery Method Room Air 01/30/25 10:47 Vital Signs Temperature 98.1 F 01/30/25 10:47 Pulse Rate 47 L 01/30/25 10:47 Respiratory Rate 18 01/30/25 10:47 Blood Pressure 116/63 01/30/25 10:47 Pulse Oximetry 100 01/30/25 10:47 Oxygen Delivery Method Room Air 01/30/25 10:47 Temperature 98.1 F 01/30/25 10:47 Pulse Rate 41 L 01/30/25 12:15 Respiratory Rate 18 01/30/25 10:47 Blood Pressure 111/68 01/30/25 12:02 Pulse Oximetry 99 01/30/25 12:15 Oxygen Delivery Method Room Air 01/30/25 10:47 Medications Administered Medications: Discontinued Medications Generic Name Dose Route Start Last Admin Trade Name Chelsy PRN Reason Stop Dose Admin Ketorolac Tromethamine 15 mg 01/30/25 11:01 01/30/25 11:28 Ketorolac 15 Mg/Ml Inj IVP 01/30/25 11:02 15 mg ONCE ONE Administration Medical Decision Making Lab Data Lab results reviewed: Yes I reviewed the patient's lab results Labs: Lab Results 01/30/25 01/30/25 Range/Units 11:15 11:20 WBC 7.04 (4.50-11.00) K/uL RBC 4.78 (4.00-5.20) m/uL Hgb 12.8 (12.0-16.0) gm/dL Hct 39.7 (33.0-51.0) % MCV 83 (80-100) fL MCH 27 (26-34) pg MCHC 32 (32-36) gm/dL RDW Coeff of Deon 12.8 (11.5-15.5) % Plt Count 214 (140-440) K/uL Neut % (Auto) 51.9 (42.0-72.0) % Lymph % (Auto) 35.1 (20-44) % [place]land % (Auto) 9.1 (0.0-11.0) % Eos % (Auto) 3.6 (0.0-7.0) % Baso % (Auto) 0.3 (0.0-3.0) % Neut # (Auto) 3.66 (1.7-7.0) K/uL Lymph # (Auto) 2.47 (0.90-2.90) K/uL Highland # (Auto) 0.60 (0.00-0.90) K/UL Eos # (Auto) 0.25 (0.00-0.50) K/uL Baso # (Auto) 0.02 (0.00-0.30) K/uL Abs Immat Gran (auto) 0.00 (0.00-0.30) K/uL Imm/Tot Granulo (auto) 0.0 % Sodium 137 (135-149) mmol/L Potassium 3.9 (3.6-5.1) mmol/L Chloride 101 (96-114) mmol/L Carbon Dioxide 29 (20-32) mmol/L Anion Gap 7 (7-15) mEq/L BUN 12 (5-24) mg/dL Creatinine 0.7 (0.5-1.5) mg/dL Estimated Creat Clear 103.83 Estimated GFR 107 ml/min Glucose 85 (60-115) mg/dL Calcium 9.2 (8.4-10.6) mg/dL Total Bilirubin 0.7 (0.1-1.5) mg/dL AST 23 (12-35) U/L ALT 16 (4-35) U/L Alkaline Phosphatase 61 (40-150) U/L C-Reactive Protein < 0.5 L (0.5-1.0) mg/dL Total Protein 6.9 (6.0-8.3) g/dL Albumin 4.2 (3.3-5.0) g/dL Urine Color Yellow (Yellow) Urine Appearance Clear (Clear) Urine pH 5.5 (5.0-8.5) Ur Specific Hazard 1.015 (1.000-1.030) Urine Protein Negative (Negative) Urine Glucose (UA) Negative (Negative) Urine Ketones Negative (Negative) Urine Blood Negative (Negative) Urine Nitrite Negative (Negative) Urine Bilirubin Negative (Negative) Urine Urobilinogen 0.2 (0.2-1.0) Ur Leukocyte Esterase Negative (Negative) Urine RBC 0-2 (0-2) Urine WBC 0-2 (0-5) Ur Squamous Epith Cells None (None-Few) Urine Bacteria None (None) Discharge Plan Discharge Clinical Impression: Back pain Patient Disposition: Home, Self-Care Condition: Stable Instructions: Acute Low Back Pain (ED) Additional Instructions: As discussed, I would use ibuprofen 400 mg plus Tylenol 1000 mg 3 times daily with food. Today, all of your tests are normal, we checked blood counts, electrolytes, kidney function, liver function, inflammatory markers, and a urine test. Based on your exam and normal results, this seems to be pain related more to musculoskeletal cause. If you do not feel you are gradually improving over the next few days, follow-up with primary care for recheck. Return to the ER at any time if you have severe uncontrolled pain, new symptoms such as fevers, vomiting, weakness, or other severe symptoms. Prescriptions: No Action No Known Home Medications Follow Up/Referrals: Hoa Tejada APRN, UPHOLSTERY DEPARTMENT SUPERVISOR [Primary Care Provider, Family Practice] Stand Alone Forms: Accumulate Info Instructions
--- OUTSIDE RECORDS SUMMARY | 2025-01-30 11:06 | XMS_ITS | CCD ---
Author Name Interface, [id number] lity Address [address] [place] [id number] [facility] Address [address] [place] [id number] Reason for Visit Social History Date Name Value 12/03/2024 Sex Unknown
--- OUTSIDE RECORDS SUMMARY | 2025-01-30 11:07 | XMS_ITS | CCD ---
Author Name Interface, [id number] lity Address [address] [place] [address] [facility] Address [address] [place] [id number] Reason for Visit Social History Date Name Value 12/03/2024 Sex Unknown
[2025-01-30 11:23] LABS: Appearance Urine Clear (Clear)
[2025-01-30 11:34] LABS: Hematocrit* 39.7 % (33.0-51.0); Hemoglobin* 12.8 gm/dL (12.0-16.0); Immature Granulocytes Abs Auto 0.00 K/uL (0.00-0.30); Immature Granulocytes Pct Auto 0.0 %; Lymphocytes Absolute Auto 2.47 K/uL (0.90-2.90); Mean Corpuscular HGB Conc 32 gm/dL (32-36); Mean Corpuscular Hemoglobin 27 pg (26-34); Mean Corpuscular Volume 83 fL (80-100); RDW Coefficient of Variation % 12.8 % (11.5-15.5); Red Blood Count* 4.78 m/uL (4.00-5.20); White Blood Count* 7.04 K/uL (4.50-11.00)
[2025-01-30 11:46] LABS: Albumin* 4.2 g/dL (3.3-5.0); Chloride* 101 mmol/L (96-114); Potassium* 3.9 mmol/L (3.6-5.1); Slide Review Reflex No; Sodium* 137 mmol/L (135-149)
[2025-01-30 11:49] LABS: Alanine Aminotransferase* 16 U/L (4-35); Anion Gap 7 mEq/L (7-15); Aspartate Amino Transferase* 23 U/L (12-35); Blood Urea Nitrogen* 12 mg/dL (5-24); Carbon Dioxide* 29 mmol/L (20-32); Creatinine* 0.7 mg/dL (0.5-1.5); Est. Creatinine Clearance* 103.83; Estimated Glomerular Filt Rate 107 ml/min; Total Protein* 6.9 g/dL (6.0-8.3)
[2025-01-30 11:50] LABS: Calcium* 9.2 mg/dL (8.4-10.6); Glucose* 85 mg/dL (60-115)
[2025-01-30 12:05] LABS: Alkaline Phosphatase* 61 U/L (40-150); Bilirubin Total* 0.7 mg/dL (0.1-1.5)
== END 2025-01-30 13:04 | disposition home or self-care (01) ==
PROVIDERS: Emergency Provider Emergency Medicine; PCP Nurse Practitioner Family
DX: M54.50 Low back pain, unspecified (principal)
CPT/HCPCS: 36415; 80053; 81001; 85025; 86140; 96374; 99284; J1885

== ENCOUNTER 2025-02-16 12:33 | Outpatient (CLI) | payer OTHER, SELFPAY ==
--- NOTE | 2025-02-16 13:00 | CRLHL7_ITS ---
For Patients: As a result of the Cures Act, medical imaging exams and procedure reports are released immediately into your electronic medical record. You may view this report before your referring provider. If you have questions, please contact your health care provider. EXAM: MRI OF THE SACRUM AND SI JOINTS, WITHOUT CONTRAST CLINICAL INDICATION: Dorsalgia. COMPARISON PLAIN FILMS: None. COMPARISON CROSS-SECTIONAL IMAGING STUDIES: 09/22/2024 CT abdomen pelvis. MRI of the lumbar spine from same day. TECHNICAL: Axial, sagittal and coronal T1, PD FS and STIR images of the sacrum and SI joints. FINDINGS: SI JOINTS: Mild degenerative hypertrophic change, subchondral sclerosis and subchondral edema in the SI joints. No ankylosis. No erosions. OSSEOUS STRUCTURES: No fracture, marrow edema or marrow replacement process. MUSCULOTENDINOUS STRUCTURES: Tendons and visualized musculotendinous units are intact. No muscle atrophy, or edema to suggest strain changes. Piriformis muscle mass is symmetric, right to left, without atrophy or edema. INTRAPELVIC CONTENTS: No mass, fluid collection or adenopathy. Hysterectomy. NEUROVASCULAR STRUCTURES: Broad-based disc bulge at L4-5 and L5-S1. Please see lumbar MRI for further discussion. No aneurysmal dilation of the visualized iliac arterial circulation. IMPRESSION: 1. Mild degenerative changes in the SI joints. 2. Please see lumbar MRI for further discussion of lumbar interspaces. 3. Hysterectomy. Dictated by Noel Chavez MD @ 02/16/2025 4:22:47 PM (Electronically Signed)
--- NOTE | 2025-02-16 13:45 | CRLHL7_ITS ---
For Patients: As a result of the Century Cures Act, medical imaging exams and procedure reports are released immediately into your electronic medical record. You may view this report before your referring provider. If you have questions, please contact your health care provider. INDICATION: Low back pain. COMPARISON: 09/22/2024. Technique Sagittal T1, T2, and STIR sequences. Axial T1 and T2 weighted sequences. FINDINGS: Normal vertebral body alignment. No fractures. No vertebral body loss of height. No spondylolisthesis. No ligamentous injury. No suspicious osseous lesions. Normal conus terminates at L1. T12-L1 L1-2: No spinal canal or neural foraminal narrowing. L2-3: Disc degeneration posterior disc bulge. Flattening of ventral thecal sac. No narrowing of the spinal canal. No neural foraminal narrowing. L3-4: Disc degeneration and posterior disc bulge. No narrowing of spinal canal. No neural foraminal narrowing. L4-5: Disc degeneration and posterior disc bulge. Flattening ventral thecal sac. No narrowing of spinal canal. No neural foraminal narrowing. Tiny central annular fissure. L5-S1: Disc degeneration and posterior disc bulge. No narrowing of the spinal canal. No impingement of the traversing S1 nerve roots. No neural foraminal narrowing. Tiny central annular fissure. Normal visualized SI joints. Normal perispinal soft tissues. IMPRESSION: 1. Normal alignment. No fractures 2. At L4-5, disc degeneration and posterior disc bulge. No narrowing of the spinal canal. Tiny central annular fissure 3. At L5-S1, disc degeneration and posterior disc bulge. No spinal canal or neural foraminal narrowing. Tiny central annular fissure Dictated by Edson Rodriguez MD @ 02/17/2025 3:22:05 PM (Electronically Signed)
== END 2025-02-16 12:34 | disposition home or self-care (01) ==
LOC: MRI 12:33
PROVIDERS: PCP Nurse Practitioner Family; Visit Provider Surgery
DX: M54.9 Dorsalgia, unspecified (principal); M51.369 Other intervertebral disc degeneration, lumbar region without mention of lumbar back pain or lower extremity pain; M51.379 Other intervertebral disc degeneration, lumbosacral region without mention of lumbar back pain or lower extremity pain
CPT/HCPCS: 72148; 72195